=== PATIENT | female | born 1965 | race Caucasian/White ===

== ENCOUNTER 2021-07-03 11:37 | Emergency (ER) | payer BC, SELFPAY ==
[2021-07-03] VITALS (26 sets, daily range): BP systolic 114–128; BP diastolic 69–83; PULSE 65–84; RESP 12–27; O2SAT 95–100
--- NOTE | 2021-07-03 | ECG_ITS ---
Measurements Intervals [place] Rate: 76 P: 77 [place]: 206 QRS: 89 QRSD: 84 T: 78 QT: 398 QTc: 449 Interpretive Statements SINUS RHYTHM NORMAL ECG NO PREVIOUS ECG AVAILABLE FOR COMPARISON Electronically Signed On 07-03-2021 14:38:37 CDT by Willie Schwarz M.D.
--- NOTE | ~2021-07-03 | XR_ITS ---
EXAMINATION: XR chest 2V DATE: 07/03/2021 12:09 INDICATION: Midsternal chest pain radiating posteriorly TECHNIQUE: PA and lateral views of the chest were obtained. COMPARISON: Chest radiograph dated 01/30/2020 FINDINGS: The lungs remain clear with no focal airspace opacities, pulmonary edema, pleural effusion or pneumot horax. The cardiomediastinal silhouette is normal. Bilateral breast implants. IMPRESSION: 1. No acute cardiopulmonary disease. Reviewed, dictated and finalized at location B.
[2021-07-03 11:56] LABS: Basophils Absolute Auto 0.1 K/mm3 (0.0-0.1); Basophils Percent Auto 0.7 % (0.2-1.2); Eosinophils Absolute Auto 0.1 K/mm3 (0-0.3); Hematocrit 39.4 % (37.0-47.0); Hemoglobin 13.2 g/dL (12.0-15.0); Immature Granulocyte Absolute 0.02 K/mm3 (0.00-0.031); Immature Granulocyte Percent A 0.2 % (0-0.5); Lymphocytes Absolute Auto 1.82 K/mm3 (0.9-3.2); Lymphocytes Percent Auto 22.1 % (18.3-44.2); Mean Corpuscular HGB Conc 33.5 g/dl (32-36); Mean Corpuscular Hemoglobin 30.3 pg (26-34); Mean Corpuscular Volume 90.6 fl (80-100); Mean Platelet Volume 8.8 fl (7.4-10.4); Monocytes Absolute Auto 0.7 K/mm3 (0.1-0.6); Neutrophils Absolute Auto 5.5 K/mm3 (1.3-6.7); Platelet Count Result 264 k/mm3 (150-375); Red Blood Count 4.35 M/mm3 (4.2-5.4); Red Cell Distribution Width 13.4 % (11.5-14.5); White Blood Count 8.2 K/mm3 (4.5-10.0)
[2021-07-03 12:05] LABS: Alanine Aminotransferase 22 U/L (4-35); Albumin Level 4.3 g/dL (3.5-5.1); Alkaline Phosphatase 72 U/L (38-126); Anion Gap 8 mmol/L (8-16); Aspartate Amino Transferase 38 U/L (14-36); Bilirubin,Total 0.7 mg/dL (0.2-1.3); Blood Urea Nitrogen 19 mg/dL (7-17); Calcium 9.2 mg/dL (8.4-10.2); Carbon Dioxide 25 mmol/L (22-30); Chloride 103 mmol/L (98-107); Estimated CRCL calculation 79 ml/min; Estimated Glomerular Filt Rate > 60; Glucose 107 mg/dL (65-110); Lipase 156 U/L (23-300); Potassium 3.8 mmol/L (3.4-5.0); Sodium 136 mmol/L (137-145)
[2021-07-03 12:06] LABS: Partial Thromboplastin Time 25.4 SECONDS (22.3-36.8); Prothrombin Time 12.9 Seconds (11.1-14.7)
[2021-07-03 12:11] LABS: D Dimer < 0.27 ug/mL (<0.48)
--- NOTE | 2021-07-03 12:13 | ED.CHESTPAIN ---
HPI - Chest Pain General Chief Complaint: Chest Pain Stated Complaint: chest pain Time Seen by Provider: 07/03/21 11:51 Source: RN notes reviewed History of Present Illness HPI narrative: Patient presents emergency department from home via EMS for chest pain. Patient states pain began approximately 10 AM this morning patient states she was standing working when she got pain in the midsternal chest the pain was described as sharp and stabbing and went through to her back states that the pain lasted for few minutes and resolved and then came back again states the pain is now resolved she does note some mild shortness of breath with pain she denies any fevers or chills abdominal pain nausea vomiting or any other symptoms. Denies any previous cardiac history Related Data Home Medications Medication Instructions Recorded Confirmed levothyroxine 75 mcg tablet 75 mcg PO DAILY 06/03/21 06/03/21 Allergies Allergy/AdvReac Type Severity Reaction Status Date / Time adhesive tape Allergy Mild SEVERE Verified 06/03/21 15:45 ITCHING/RASH WITH SURGICAL TAPE Sulfa (Sulfonamide Allergy Mild Rash Verified 06/03/21 15:45 Antibiotics) sulfamethoxazole Allergy Mild Rash Verified 06/03/21 15:45 latex Allergy Unknown Rash Verified 06/03/21 15:45 sulfamethizole Allergy Unknown Rash Verified 06/03/21 15:45 trimethoprim Allergy Unknown Rash Verified 06/03/21 15:45 Review of Systems Review of Systems: Gen.: Denies fevers or chills ENT: Denies congestion Respiratory: Denies shortness of breath or cough CV: See HPI GI: Denies abdominal pain nausea, emesis or diarrhea Musculoskeletal: Denies back pain or muscle pain Neuro: Denies numbness, tingling, weakness or focal weakness Skin: Denies rash Except as documented, all other systems reviewed and negative [facility] Past Medical History Medical History Hypothyroid Surgical History Surgical History H/O: hysterectomy History of breast surgery breast implants Family History Family History Sibling Family history of malignant neoplasm of breast in first degree relative, Onset Age: 50 Mother Family history of malignant neoplasm of breast in first degree relative Other Family history of lung cancer Family history of malignant neoplasm of ovary Family history of renal cell carcinoma Social History Social History (Updated 07/03/21 @ 12:13 by Pasha Shin DO) Smoking status: Former smoker Alcohol intake: current Alcohol use details: social Substance use: never Substance use type: does not use Gender identity (if verbalized by the patient): Female Sexual Orientation (if Verbalized by the Patient): Straight or Heterosexual Exam Narrative: APPEARANCE: No acute distress, nontoxic, resting in bed EYES: EOMI HEENT: Normocephalic, atraumatic, OMM RESPIRATORY: No respiratory distress Clear to auscultation bilaterally with no rhonchi wheezing or rales. CARDIOVASCULAR: Regular rate and rhythm without murmurs rubs or gallops. ABDOMINAL: Soft, nontender, nondistended, no rebound or guarding MUSCULOSKELETAl: Moves all extremities. No clubbing, cyanosis or edema. NEURO: Awake and alert. Following commands, speech normal, no focal deficits SKIN:: Warm, dry. No rashes lesions or abrasions PSYCHIATRIC: Normal affect/mood, Course Course Emergency Course: Patient with no chest pain on the emergency department. Called and discussed with MARISSA Tellez for Dr. Schwarz. At this time I feel patient may be discharged we will set the patient up an office visit next week Discussed with patient results of workup and diagnosis. Discussed need for follow-up with primary care, proper use of medication, and reasons to return to the emergency department. Patient understands and agrees to current treatment plan V
[2021-07-03 12:17] LABS: Troponin I < 0.012 ng/mL (0.000-0.034)
[2021-07-03 15:08] LABS: Troponin I < 0.012 ng/mL (0.000-0.034)
== END 2021-07-03 15:52 | disposition home or self-care (01) ==
PROVIDERS: Emergency Provider Emergency Medicine
DX: E03.9 Hypothyroidism, unspecified (principal); Z87.891 Personal history of nicotine dependence
CPT/HCPCS: 36415; 71046; 80053; 83690; 84484; 85025; 85380; 85610; 85730; 93005; 99284

== ENCOUNTER 2023-06-17 15:03 | Inpatient (IN) | payer BC, SELFPAY ==
[2023-06-17] VITALS (7 sets, daily range): BP systolic 99–120; BP diastolic 46–67; PULSE 79–96; RESP 16–20; TEMP 36.9–39.1; O2SAT 96–99; BMI 21.6
--- NOTE | ~2023-06-17 | CT_ITS ---
EXAMINATION: CT abdomen pelvis w con INDICATION: Abdominal pain she TECHNIQUE: Computed tomographic images of the abdomen and pelvis were obtained after the administrati on of 100 cc of Omnipaque 350 intravenous contrast. The dose-length product (DLP) was 269.07 mGy-cm. Automated exposure control and iterative reconstruction technique were employed. COMPARISON: None available FINDINGS: Minimal dependent atelectasis is present in the lung bases. The heart size is normal. Bilat eral breast implants are noted. The liver, spleen, pancreas, gallbladder, and adrenal glands are norm al. The left kidney is unremarkable. There is a 3.2 cm area of abnormal perfusion of the posterolater al right mid kidney. There is mild right perinephric fat stranding. A small volume of pelvic ascites is noted. There is mild wall thickening of the urinary bladder with surrounding inflammatory change. There is mild lumbar spondylosis. IMPRESSION: 1. Abnormal perfusion of the posterolateral right mid kidney which could reflect focal pyelonephritis versus developing phlegmon/abscess. 2. Wall thickening of the urinary bladder, consistent with cystitis. Reviewed, dictated and finalized at location F. IMPRESSION: 1. Abnormal perfusion of the posterolateral right mid kidney which could reflec t focal pyelonephritis versus developing phlegmon/abscess. 2. Wall thickening of the urinary bladder, consistent with cystitis.
--- NOTE | ~2023-06-17 | CT_ITS ---
EXAMINATION: CT abdomen pelvis w con DATE: 06/19/2023 14:20 INDICATION: concern for renal abscess TECHNIQUE: Computed tomography (CT) of the abdomen and pelvis was performed 06/17/2023 intravenous con trast. Automated exposure control and iterative reconstruction technique were employed. The dose-cyndy th product was 250.61 mGy-cm. COMPARISON: None. FINDINGS: Lower thorax: Bilateral breast implants Liver: Normal. Biliary/Gallbladder: Gallbladder is normal. No bile duct dilation. Pancreas: No mass or duct dilation. Spleen: Normal. Adrenals:No mass. Kidneys: Persistent patchy areas of hypoenhancement in the right inferior pole. No gas or rim-enhanci ng fluid collection. Normal left kidney. Thin right perinephric stranding/nonenhancing fluid. GI tract: Moderate distal esophageal and gastric wall edema. No small or large bowel dilation. Normal appendix. Mesentery/Peritoneum: No ascites, mass, or free air. Retroperitoneum: No mass. Pelvis: Absent uterus. Moderate volume deep pelvic fluid. Soft Tissues: Soft tissues and body wall unremarkable. Bones: No acute osseous finding. IMPRESSION: Moderate esophagitis/gastritis. Redemonstration of right renal findings that likely represent focal pyelonephritis. Developing phlegm on/abscess cannot be excluded. Considerable increase in the deep pelvic fluid. Reviewed, dictated and finalized at location K. IMPRESSION: Moderate esophagitis/gastritis. Redemonstration of right renal findings that likely represent focal pyelonephri tis. Developing phlegmon/abscess cannot be excluded. Considerable increase in the deep pelvic fluid.
--- NOTE | 2023-06-17 16:32 | ED.FEMALEGU ---
HPI - Female Genitourinary General Chief complaint: Urogenital-Female <Santa Baltazar PA-C - Last Filed: 06/17/23 20:29> Stated complaint: uti, kidney infection? <Santa Baltazar PA-C - Last Filed: 06/17/23 20:29> Time Seen by Provider: 06/17/23 16:32 <RUDDY Pichardo Last Filed: 06/17/23 20:29> Source: patient <RUDDY Pichardo Last Filed: 06/17/23 20:29> Mode of arrival: ambulatory <RUDDY Pichardo Last Filed: 06/17/23 20:29> Limitations: no limitations <RUDDY Pichardo Last Filed: 06/17/23 20:29> History of Present Illness HPI Narrative: Patient is a 57-year-old female who presents the ED with report of urinary symptoms. Patient reports she has had increased urination, frequency, urgency, pressure with urination for the last 3 weeks. She was started on a 10 day course of ciprofloxacin on 06/04 by her primary care doctor without much improvement. she has since also developed pain across her lower back pain in her lower abdomen, nausea, as well as fevers for the last couple of days. She has been taking ibuprofen at home. Has not had anything for pain or fever today. Noted to be febrile upon arrival. Denies vomiting, hematuria, cough or cold symptoms. <RUDDY Pichardo Last Filed: 06/17/23 20:29> Related Data Home medications: Home Medications Medication Instructions Recorded Confirmed levothyroxine 75 mcg tablet 75 mcg PO DAILY 06/03/21 06/17/23 (Synthroid) valacyclovir 500 mg tablet 500 mg PO Q12H PRN fever blisters 06/17/23 06/17/23 (Valtrex) zolpidem 10 mg tablet 10 mg PO HS PRN Insomnia 06/17/23 06/17/23 <RUDDY Pichardo Last Filed: 06/17/23 20:29> Allergies/Adverse reactions: Allergies Allergy/AdvReac Type Severity Reaction Status Date / Time adhesive tape Allergy Mild SEVERE Verified 06/17/23 19:30 ITCHING/RASH WITH SURGICAL TAPE Sulfa (Sulfonamide Allergy Mild Rash Verified 06/17/23 19:30 Antibiotics) sulfamethoxazole Allergy Mild Rash Verified 06/17/23 19:30 latex Allergy Unknown Rash Verified 06/17/23 19:30 sulfamethizole Allergy Unknown Rash Verified 06/17/23 19:30 trimethoprim Allergy Unknown Rash Verified 06/17/23 19:30 <Santa Baltazar PA-C - Last Filed: 06/17/23 20:29> Review of Systems Review of Systems: CONSTITUTIONAL: See HPI ENT: Denies rhinorrhea, congestion, sore throat. CARDIOVASCULAR: Denies chest pain. RESPIRATORY: Denies cough or dyspnea. GASTROINTESTINAL: See HPI GENITOURINARY: See HPI MUSCULOSKELETAL: See HPI NEUROLOGIC: Denies headache, dizziness, numbness, or weakness. <Santa Baltazar PA-C - Last Filed: 06/17/23 20:29> All systems reviewed & are unremarkable except as noted in HPI and below <Santa Baltazar PA-C - Last Filed: 06/17/23 20:29> [facility] Past Medical History Medical History: Medical History (Updated 06/17/23 @ 20:39 by Amy Billingsley PA-C) Hypothyroidism <Santa Baltazar PA-C - Last Filed: 06/17/23 20:29> Surgical History Surgical History: Surgical History (Updated 06/17/23 @ 20:37 by Amy Billingsley PA-C) History of augmentation of both breasts History of hysterectomy <Santa Baltazar PA-C - Last Filed: 06/17/23 20:29> Family History Family History: Family History Sibling Family history of malignant neoplasm of breast in first degree relative, Onset Age: 50 Mother Family history of malignant neoplasm of breast in first degree relative Other Family history of lung cancer Family history of malignant neoplasm of ovary Family history of renal cell carcinoma <Santa Baltazar PA-C - Last Filed: 06/17/23 20:29> Social History Social History: Social History (Updated 06/17/23 @ 20:37 by Amy Billingsley PASusan) Social History: Surrogate medical de
[2023-06-17] MEDS: ONDANSETRON INJ 4 MG/2 ML VIAL IV PUSH (16:53)
[2023-06-17] MEDS: SODIUM CHLORIDE 0.9% IV 1,000 ML 999 ML IV CONT ×2 (16:53→19:32)
[2023-06-17] MEDS: ACETAMINOPHEN 500 MG TABLET 1000 MG PO (16:53)
[2023-06-17 17:05] LABS: Basophils Percent Auto 0.3 % (0.2-1.2); Hematocrit 39.3 % (37.0-47.0); Immature Granulocyte Absolute 0.07 K/mm3 (0.00-0.031); Immature Granulocyte Percent A 0.5 % (0-0.5); Lymphocytes Absolute Auto 0.91 K/mm3 (0.9-3.2); Lymphocytes Percent Auto 6.2 % (18.3-44.2); Mean Corpuscular HGB Conc 33.1 g/dl (32-36); Mean Corpuscular Hemoglobin 29.2 pg (26-34); Mean Corpuscular Volume 88.3 fl (80-100); Mean Platelet Volume 8.9 fl (7.4-10.4); Monocytes Absolute Auto 1.3 K/mm3 (0.1-0.6); Monocytes Percent Auto 9.2 % (2.6-8.5); Neutrophils Absolute Auto 12.3 K/mm3 (1.3-6.7); Neutrophils Percent Auto 83.8 % (45.5-73.1); Platelet Count Result 233 k/mm3 (150-375); Red Blood Count 4.45 M/mm3 (4.2-5.4); Red Cell Distribution Width 14.2 % (11.5-14.5); White Blood Count 14.6 K/mm3 (4.5-10.0)
[2023-06-17 17:07] LABS: Appearance Urine Cloudy (Clear); Bacteria Urine 4+ /hpf; Bilirubin Urine Negative (Negative); Blood Urine 1+ (Negative); Color Urine Yellow (Yellow); Glucose Urine UA Negative (Negative); Ketones Urine 1+ mg/dL (Negative); Leukocyte Esterase Ur 3+ LEU/UL (Negative); Nitrate Urine Positive (Negative); Non Pathogenic Casts 0-2; Protein Urine 1+ mg/dL (Negative); Specific Grav Ur 1.013 (1.001-1.035); Squamous Epithelial Cell Urine None Seen /hpf (Few); Urobilinogen Urine 0.2 mg/dL (<2.0); WBC Urine >100 /hpf (0-3)
[2023-06-17 17:12] LABS: Alanine Aminotransferase 29 U/L (6-35); Albumin Level 4.3 g/dL (3.5-5.1); Alkaline Phosphatase 60 U/L (38-126); Anion Gap 5 mmol/L (8-16); Aspartate Amino Transferase 36 U/L (14-36); Bilirubin,Total 0.8 mg/dL (0.2-1.3); Blood Urea Nitrogen 13 mg/dL (7-17); Calcium 9.4 mg/dL (8.4-10.2); Carbon Dioxide 27 mmol/L (22-30); Chloride 98 mmol/L (98-107); Estimated CRCL calculation 77 ml/min; Estimated Glomerular Filt Rate > 60; Glucose 127 mg/dL (65-110); Potassium 3.8 mmol/L (3.4-5.0); Sodium 130 mmol/L (137-145)
[2023-06-17 17:13] LABS: Add Urine Microscopic? YES
[2023-06-17] MEDS: CEFEPIME 2 GM/NS 50 ML 2 GM/50 ML BAG IVPB (19:30)
[2023-06-17] MEDS: VANCOMYCIN 1,000 MG/NS 250 ML 1,000 MG/250 ML BAG 250 MG IVPB (20:00)
--- NOTE | 2023-06-17 20:32 | PM.IMHP ---
H&P: HPI History of Present Illness Date/Time: 06/17/23 20:00 Chief Complaint: Fever, UTI. Narrative: This is a very pleasant 57-year-old female with hypothyroidism who presented to the emergency department via private vehicle for evaluation of fever in the setting of a recent urinary tract infection. The patient provides the following history. Nearly 2 weeks ago she developed UTI symptoms to include mild dysuria, urgency, frequency, and pressure with urination. She spoke with her primary care provider who prescribed a 10 day course of ciprofloxacin which she completed. Although she was feeling a bit better her symptoms never completely resolved. The last 3 or 4 days she has developed suprapubic discomfort and a severe, aching pain in the lower back in addition to nausea, decreased appetite, and fever. She has been taking ibuprofen for her symptoms. She denies cold and flu symptoms, vomiting, and diarrhea. She has no known history of kidney stones or multidrug resistant organisms. In the ED: Her temperature was as high as 102.4?. Blood pressures have been on the lower end of normal but have improved with IV fluids. Labs were significant for WBC count of 14.6, sodium 130, lactic acid 1.0. Urine was nitrate and leukocyte esterase positive and showed 4+ bacteria and greater than [address] scan of the abdomen and pelvis showed abnormal perfusion of the posterolateral right mid kidney which could reflect focal pyelonephritis versus developing phlegmon/abscess and wall thickening of the urinary bladder consistent with cystitis. She has been started on broad-spectrum antibiotics and is being admitted in this setting for further treatment. Review of Systems Review of Systems: Twelve systems were reviewed and are negative except for as per HPI. [facility] Past Medical History Medical History (Updated 06/17/23 @ 20:39 by Amy Billingsley PA-C) Hypothyroidism Surgical History Surgical History (Updated 06/17/23 @ 20:37 by Amy Billingsley PA-C) History of augmentation of both breasts History of hysterectomy Family History Family History Sibling Family history of malignant neoplasm of breast in first degree relative, Onset Age: 50 Mother Family history of malignant neoplasm of breast in first degree relative Other Family history of lung cancer Family history of malignant neoplasm of ovary Family history of renal cell carcinoma Social History Social History (Updated 06/17/23 @ 20:37 by TISH Valles Social History: Surrogate medical decision maker: ruddy Arrieta. Code status: Full code. Smoking status: Former smoker Alcohol intake: current Alcohol use details: Social alcohol use in moderation. Substance use: never Substance use type: does not use Lack of Transportation: No Lack of Food: Never True Current Housing: I Have Housing Concerned About Future Housing: No Difficulty Paying Gas/Electric Bills: No Difficulty Paying for Meds: No Currently Unemployed: No Education: High School Diploma/GED Difficulty w/ Childcare or Family Care: No Living arrangements: alone Occupation/Education: occupation Meds Home Medications and Allergies Home Medications Medication Instructions Recorded Confirmed Type valacyclovir 500 mg tablet 500 mg PO Q12H #14 tabs 04/14/21 06/03/21 Rx (Valtrex) levothyroxine 75 mcg tablet 75 mcg PO DAILY 06/03/21 06/03/21 History (Synthroid) conjugated estrogens 0.45 mg 0.45 mg PO DAILY #90 tabs 05/30/23 Rx tablet (Premarin) Allergies Allergy/AdvReac Type Severity Reaction Status Date / Time adhesive tape Allergy Mild SEVERE Verified 06/17/23 19:30 ITCHING/RASH WITH SURGICAL TAPE Sulfa (Sulfonamide Allergy Mild Rash Verified 06/17/23 19:30 Antibiotics) sulfamethoxazole Allergy Mild Rash Verified 06/17/23 19:30 latex Allergy Unknown Rash Verified 06/16
[2023-06-17] MEDS: SODIUM CHLORIDE 0.9% IV 1,000 ML 80 ML IV CONT (21:35)
[2023-06-17] MEDS: ACETAMINOPHEN 325 MG TABLET 650 MG PO (21:54)
[2023-06-18] VITALS (7 sets, daily range): BP systolic 101–114; BP diastolic 54–58; PULSE 80–91; RESP 16–20; TEMP 37.1–38.7; O2SAT 94–97
[2023-06-18] MEDS: LEVOTHYROXINE SODIUM 75 MCG TABLET PO (04:59)
[2023-06-18] MEDS: ACETAMINOPHEN 325 MG TABLET 650 MG PO ×2 (05:24→20:30)
[2023-06-18 06:51] LABS: Basophils Percent Auto 0.3 % (0.2-1.2); Hematocrit 35.3 % (37.0-47.0); Hemoglobin 11.5 g/dL (12.0-15.0); Immature Granulocyte Absolute 0.08 K/mm3 (0.00-0.031); Immature Granulocyte Percent A 0.6 % (0-0.5); Lymphocytes Absolute Auto 0.69 K/mm3 (0.9-3.2); Lymphocytes Percent Auto 5.2 % (18.3-44.2); Mean Corpuscular HGB Conc 32.6 g/dl (32-36); Mean Corpuscular Hemoglobin 29.8 pg (26-34); Mean Corpuscular Volume 91.5 fl (80-100); Mean Platelet Volume 9.2 fl (7.4-10.4); Monocytes Absolute Auto 1.4 K/mm3 (0.1-0.6); Monocytes Percent Auto 10.5 % (2.6-8.5); Neutrophils Absolute Auto 11.1 K/mm3 (1.3-6.7); Neutrophils Percent Auto 83.4 % (45.5-73.1); Platelet Count Result 172 k/mm3 (150-375); Red Blood Count 3.86 M/mm3 (4.2-5.4); Red Cell Distribution Width 14.5 % (11.5-14.5); White Blood Count 13.3 K/mm3 (4.5-10.0)
[2023-06-18 07:08] LABS: Anion Gap 4 mmol/L (8-16); Blood Urea Nitrogen 10 mg/dL (7-17); Calcium 8.5 mg/dL (8.4-10.2); Carbon Dioxide 23 mmol/L (22-30); Chloride 106 mmol/L (98-107); Estimated CRCL calculation 89 ml/min; Estimated Glomerular Filt Rate > 60; Glucose 125 mg/dL (65-110); Magnesium 1.8 mg/dL (1.6-2.3); Potassium 3.4 mmol/L (3.4-5.0); Sodium 133 mmol/L (137-145)
[2023-06-18] MEDS: CEFEPIME 2 GM/NS 50 ML 2 GM/50 ML BAG IVPB ×2 (08:03→21:20)
[2023-06-18] MEDS: ENOXAPARIN 40 MG/0.4 ML SYRINGE SUB-Q (08:05)
--- NOTE | 2023-06-18 09:06 | WPDURCON ---
Assessment and Plan Assessment and plan (1) Pyelonephritis of right kidney: Code(s): N12 - Tubulo-interstitial nephritis, not specified as acute or chronic Status: Acute Assessment and Plan: Continue with broad-spectrum antibiotics pending culture and sensitivity. As long as white count continues to improve and she remains afebrile will not need reimaging this admission. Will plan on outpatient CT in 4-6 weeks time. If develops recurring fevers or rising white count then will need reimaging sooner to make sure no abscesses developed requiring percutaneous drainage Urology Consult Note HPI Date Seen: 06/18/23 Time Seen: 09:06 Requesting Physician: Archie Quiroz MD Primary Care Provider: Antoinette Cloud, PAAntonellaC Consult Narrative Reason for consult: Pyelonephritis Narrative: Lexii Barone is a 57 year old female who was treated for urinary tract infection as an outpatient with 10 day course of Cipro. She did not do any better and then ended up in the emergency room with fever and right flank pain. Evaluation with CT scan reveals abnormality in the right mid pole kidney consistent with pyelonephritis. There is no evidence of stones or obstruction. The time of my evaluation she is resting comfortably without any significant complaints. Review of Systems Review of Systems: All systems reviewed & are unremarkable except as noted in HPI and below PMFSH Past Medical History Medical History Hypothyroidism Surgical History Surgical History History of augmentation of both breasts History of hysterectomy Family History Family History Sibling Family history of malignant neoplasm of breast in first degree relative, Onset Age: 50 Mother Family history of malignant neoplasm of breast in first degree relative Other Family history of lung cancer Family history of malignant neoplasm of ovary Family history of renal cell carcinoma Social History Social History Social History: Surrogate medical decision maker: ruddy Arrieta. Code status: Full code. Smoking status: Former smoker Alcohol intake: current Alcohol use details: Social alcohol use in moderation. Substance use: never Substance use type: does not use Do You Feel Safe in your Home?: Yes Lack of Transportation: No Lack of Food: Never True Current Housing: I Have Housing Concerned About Future Housing: No Difficulty Paying Gas/Electric Bills: No Difficulty Paying for Meds: No Currently Unemployed: No Education: High School Diploma/GED Difficulty w/ Childcare or Family Care: No Living arrangements: alone Occupation/Education: occupation Spiritual care concerns: No Meds Home Medications and Allergies Home Medications Medication Instructions Recorded Confirmed Type levothyroxine 75 mcg tablet 75 mcg PO DAILY 06/03/21 06/17/23 History (Synthroid) valacyclovir 500 mg tablet 500 mg PO Q12H PRN fever blisters 06/17/23 06/17/23 History (Valtrex) zolpidem 10 mg tablet 10 mg PO HS PRN Insomnia 06/17/23 06/17/23 History Allergies Allergy/AdvReac Type Severity Reaction Status Date / Time adhesive tape Allergy Mild SEVERE Verified 06/17/23 19:30 ITCHING/RASH WITH SURGICAL TAPE Sulfa (Sulfonamide Allergy Mild Rash Verified 06/17/23 19:30 Antibiotics) sulfamethoxazole Allergy Mild Rash Verified 06/17/23 19:30 latex Allergy Unknown Rash Verified 06/17/23 19:30 sulfamethizole Allergy Unknown Rash Verified 06/17/23 19:30 trimethoprim Allergy Unknown Rash Verified 06/17/23 19:30 Vital Signs Vital Signs - 24 hr 06/17/23 15:04 06/17/23 16:44 06/17/23 17:33 Temperature 38.0 C H 39.1 C H 38.7 C H Pulse Rate 96 Respiratory Ra
--- NOTE | 2023-06-18 10:11 | PM.IMPN ---
Progress Note: A&P Assessment and Plan (1) Pyelonephritis of right kidney: Code(s): N12 - Tubulo-interstitial nephritis, not specified as acute or chronic Status: Acute Assessment and Plan: UTI symptoms began 2 weeks ago including dysuria, frequency, and pressure with urination. PCP prescribed ciprofloxacin she completed. Symptoms never fully resolved and patient recently developed worsening suprapubic discomfort and lower back pain, decreased appetite, and fever. Urinalysis with cloudy appearance and 1+ protein, 1+ ketone, 1+ blood, positive nitrates, 3+ leukocytes, 3-5 RBC, > 100 WBC, and 4+ bacteria. CT abdomen/pelvis revealed right pyelonephritis with cystitis. Dr. Xiong (urology) examined patient today and plan to continue broad-spectrum antibiotics pending culture and sensitivity. If WBC rises or patient develops persistent fevers will need reimaging to rule out a developing abscess. Otherwise they plan plan is for outpatient CT in 4-6 weeks. Blood cultures pending Urine culture gram negative bacilli Cefepime Vancomycin (2) Hyponatremia: Code(s): E87.1 - Hypo-osmolality and hyponatremia Status: Acute Assessment and Plan: Patient mildly hyponatremic on admission. Started on 80ml/hr NS IV. Sodium is responding appropriately to fluid resuscitation. Continue to monitor Na 80ml/hr NS IV (3) Hypothyroidism: Code(s): E03.9 - Hypothyroidism, unspecified Status: Acute Assessment and Plan: Patients home dose of levothyroxine 75mcg daily. TSH 0.170. Will decrease her dose to 50mcg daily. Patient received her morning dose already, so new dose will start 06/19/23. Free T4 pending Time Spent With Patient Time with patient: Greater than 35 minutes Subjective Date/time seen: 06/18/23 10:11 Interval history: 57-year-old female with hypothyroidism who presented to the emergency department for fever with recent urinary tract infection. 2 weeks ago she developed UTI symptoms including dysuria, frequency, and pressure with urination. She then prescribed a course of ciprofloxacin by her PCP which she completed. Symptoms never fully resolved and patient developed worsening suprapubic pain and lower back pain, decreased appetite, and fever. She denies chest pain, shortness of breath, nausea, vomiting, and changes in bowel/bladder. Review of Systems Review of Systems: All systems reviewed & are unremarkable except as noted in HPI and below Exam Narrative: AF HR 91 RR 16 SpO2 94 BP 101/58 General: well nourished, well-developed female in no acute respiratory distress who is nontoxic appearing, lying semi recumbent in bed. HEENT: Normocephalic. Atraumatic. Pupils equal round reactive to light. Extraocular movement intact. Sclera clear and anicteric. No facial asymmetry. Chest: Lungs are clear to auscultation bilaterally. No wheezes or crackles. CV: Heart was regular rate and rhythm. S1-S2. No murmurs, gallops, or rubs. Abd: CVA tenderness R>L. Abdomen was soft. Suprapubic tenderness. Nondistended. Positive bowel sounds. No organomegaly or masses. Ext: No clubbing, cyanosis, or edema. 2+ DP pulses bilaterally. Neuro: Patient is alert and oriented x4. Speech is clear. Psych: Normal mood and affect. Patient is pleasant and cooperative. Skin: Warm and dry. No rashes noted. Objective Data Vital Signs Vital Signs: Vital Signs - 24 hr 06/17/23 15:04 06/17/23 16:44 06/17/23 17:33 Temperature 100.4 F H 102.4 F H 101.6 F H Pulse Rate 96 Respiratory Rate 20 Blood Pressure 120/67 Pulse Oximetry 99 Oxygen Delivery Room Air 06/17/23 17:33 06/17/23 19:20 06/17/23 20:31 Temperature 98.4 F Pulse Rate 88 87 79 Respiratory Rate 20 16 18 Blood Pressure 107/46 L 99/62 L 110/58 L Pulse Oximetry 96 97 98 Oxygen Delivery 06/17/23 21:58 06/17/23 23:00 06/18/23 05:43 Temperature 98.5 F 100.5 F H Pulse Rate 86 89 Respiratory Rate 20 20 Blood Pressure
[2023-06-18 11:25] LABS: Free T4 Free Thyroxine Reflex 1.17 ng/dL (0.78-2.19)
[2023-06-18] MEDS: SODIUM CHLORIDE 0.9% IV 1,000 ML 80 ML IV CONT (13:06)
[2023-06-18] MEDS: ONDANSETRON INJ 4 MG/2 ML VIAL IV PUSH (14:19)
[2023-06-18] MEDS: VANCOMYCIN 1,000 MG/NS 250 ML 1,000 MG/250 ML BAG 250 MG IVPB (14:25)
[2023-06-18 14:57] LABS: Total Triiodothyronine (T3) 0.64 NG/ML (0.97-1.69)
[2023-06-18] MEDS: ZOLPIDEM TARTRATE (*CRX) 5 MG TABLET 10 MG PO (21:21)
[2023-06-19 01:51] VITALS: TEMP 36.9
[2023-06-19] MEDS: LEVOTHYROXINE SODIUM 50 MCG TABLET PO (05:31)
[2023-06-19] MEDS: SODIUM CHLORIDE 0.9% IV 1,000 ML 80 ML IV CONT ×2 (05:36→21:30)
[2023-06-19 06:00] VITALS: BP 94/52; PULSE 54; RESP 18; TEMP 36.5; O2SAT 100
[2023-06-19 07:41] LABS: Estimated CRCL calculation 89 ml/min; Estimated Glomerular Filt Rate > 60
--- NOTE | 2023-06-19 07:53 | PM.IMPN ---
Progress Note: A&P Assessment and Plan (1) Pyelonephritis of right kidney: Code(s): N12 - Tubulo-interstitial nephritis, not specified as acute or chronic Status: Acute Assessment and Plan: UTI symptoms began 2 weeks ago including dysuria, frequency, and pressure with urination. PCP prescribed ciprofloxacin she completed. Symptoms never fully resolved and patient recently developed worsening suprapubic discomfort and lower back pain, decreased appetite, and fever. Urinalysis with cloudy appearance and 1+ protein, 1+ ketone, 1+ blood, positive nitrates, 3+ leukocytes, 3-5 RBC, > 100 WBC, and 4+ bacteria. CT abdomen/pelvis revealed right pyelonephritis with cystitis. Dr. Xiong (urology) examined patient today and plan to continue broad-spectrum antibiotics pending culture and sensitivity. If WBC rises or patient develops persistent fevers will need reimaging to rule out a developing abscess. Otherwise they plan plan is for outpatient CT in 4-6 weeks. Patient developed a 101.6 F fever overnight. WBC remain elevated 13.3, but downtrending with current antibiotics. A new CT abdomen/pelvis cannot rule out abscess formation. Vancomycin discontinued due to infection likely being ecoli. Patient remains on cefepime. Blood cultures gram negative bacilli likely ecoli Urine culture ecoli Cefepime (2) Hyponatremia: Code(s): E87.1 - Hypo-osmolality and hyponatremia Status: Acute Assessment and Plan: Patient mildly hyponatremic on admission. Started on 80ml/hr NS IV. Sodium is responding appropriately to fluid resuscitation. Continue to monitor Na 80ml/hr NS IV (3) Hypothyroidism: Code(s): E03.9 - Hypothyroidism, unspecified Status: Acute Assessment and Plan: Patients home dose of levothyroxine 75mcg daily. TSH 0.170. Will decrease her dose to 50mcg daily. Patient received her morning dose already, so new dose will start 06/19/23. Free T4 1.17. Will have patient follow up with primary care provider outpatient to follow up on medication change. Time Spent With Patient Time with patient: 25 - 35 minutes Subjective Date/time seen: 06/19/23 07:53 Interval history: 57-year-old female with hypothyroidism who presented to the emergency department for fever with recent urinary tract infection. 2 weeks ago she developed UTI symptoms including dysuria, frequency, and pressure with urination. She then prescribed a course of ciprofloxacin by her PCP which she completed. Symptoms never fully resolved and patient developed worsening suprapubic pain and lower back pain, decreased appetite, and fever. Patient is pleasant lying in bed. She endorses several episodes of diarrhea, stating each time she eats she must immediately use the restroom. She is having mild abdominal cramping more so on the right. She is now trying a bland diet. She denies hematochezia, nausea/vomiting. Discussed with patient that due to her multiple fevers overnight going to 101.6F. A new CT abdomen/pelvis was obtained and a developing abscess cannot be ruled out. She reports that she has a fever blister and takes valacyclovir twice a day when these occurs. Will restart medication at this time. Review of Systems Review of Systems: All systems reviewed & are unremarkable except as noted in HPI and below Exam Narrative: AF HR 77 RR 18 SpO2 100 BP 94/52 General: well nourished, well-developed female in no acute respiratory distress who is nontoxic appearing, lying semi recumbent in bed. HEENT: Normocephalic. Atraumatic. Pupils equal round reactive to light. Extraocular movement intact. Sclera clear and anicteric. No facial asymmetry. Chest: Lungs are clear to auscultation bilaterally. No wheezes or crackles. CV: Heart was regular rate and rhythm. S1-S2. No murmurs, gallops, or rubs. Abd: CVA tenderness R>L. Abdomen was soft. Suprapubic tenderness. Nondistended. Positive bowel sounds. No organomegaly or masses. Ext: No clubbi
[2023-06-19] MEDS: valACYclovir HCL 500 MG TABLET PO ×2 (08:46→20:27)
[2023-06-19] MEDS: CEFEPIME 2 GM/NS 50 ML 2 GM/50 ML BAG IVPB (08:49)
[2023-06-19 08:55] VITALS: BP 97/45; PULSE 77; O2SAT 97
[2023-06-19] MEDS: VANCOMYCIN 1,000 MG/NS 250 ML 1,000 MG/250 ML BAG 250 MG IVPB (10:13)
[2023-06-19 14:00] VITALS: BP 113/65; PULSE 98; RESP 12; TEMP 37.2; O2SAT 97
[2023-06-19 20:00] VITALS: O2SAT 97
[2023-06-19] MEDS: MEROPENEM 1 GM/NS 100 ML 1 GM/100 ML BAG IVPB (20:18)
[2023-06-19] MEDS: ZOLPIDEM TARTRATE (*CRX) 5 MG TABLET 10 MG PO (20:27)
[2023-06-19 20:38] VITALS: BP 125/65; PULSE 61; RESP 17; TEMP 37.1; O2SAT 96
[2023-06-20] MEDS: MEROPENEM 1 GM/NS 100 ML 1 GM/100 ML BAG IVPB ×2 (03:00→11:27)
[2023-06-20 05:14] VITALS: BP 124/81; PULSE 66; RESP 18; TEMP 36.6; O2SAT 98
[2023-06-20] MEDS: LEVOTHYROXINE SODIUM 50 MCG TABLET PO (05:23)
[2023-06-20 07:02] LABS: Estimated CRCL calculation 89 ml/min; Estimated Glomerular Filt Rate > 60
--- NOTE | 2023-06-20 07:22 | PM.IMPN ---
Progress Note: A&P Assessment and Plan (1) Pyelonephritis of right kidney: Code(s): N12 - Tubulo-interstitial nephritis, not specified as acute or chronic Status: Acute Assessment and Plan: UTI symptoms began 2 weeks ago including dysuria, frequency, and pressure with urination. PCP prescribed ciprofloxacin she completed. Symptoms never fully resolved and patient recently developed worsening suprapubic discomfort and lower back pain, decreased appetite, and fever. Urinalysis with cloudy appearance and 1+ protein, 1+ ketone, 1+ blood, positive nitrates, 3+ leukocytes, 3-5 RBC, > 100 WBC, and 4+ bacteria. CT abdomen/pelvis revealed right pyelonephritis with cystitis. Dr. Xiong (urology) examined patient today and plan to continue broad-spectrum antibiotics pending culture and sensitivity. If WBC rises or patient develops persistent fevers will need reimaging to rule out a developing abscess. Otherwise they plan plan is for outpatient CT in 4-6 weeks. Patient developed a 101.6 F fever overnight. WBC remain elevated 13.3, but downtrending with current antibiotics. A new CT abdomen/pelvis cannot rule out abscess formation. Vancomycin discontinued due to infection likely being ecoli. Patient remains on cefepime. Blood cultures gram negative bacilli likely ecoli Urine culture ecoli with ESBL resistance New blood culture pending Meropenem 1g IVPB q8 (2) Hyponatremia: Code(s): E87.1 - Hypo-osmolality and hyponatremia Status: Acute Assessment and Plan: Patient mildly hyponatremic on admission. Started on 80ml/hr NS IV. Sodium is responding appropriately to fluid resuscitation. Continue to monitor Na 80ml/hr NS IV (3) Hypothyroidism: Code(s): E03.9 - Hypothyroidism, unspecified Status: Acute Assessment and Plan: Patients home dose of levothyroxine 75mcg daily. TSH 0.170. Will decrease her dose to 50mcg daily. Patient received her morning dose already, so new dose will start 06/19/23. Free T4 1.17. Will have patient follow up with primary care provider outpatient to follow up on medication change. Time Spent With Patient Time with patient: 25 - 35 minutes Subjective Date/time seen: 06/20/23 07:22 Interval history: 57-year-old female with hypothyroidism who presented to the emergency department for fever with recent urinary tract infection. 2 weeks ago she developed UTI symptoms including dysuria, frequency, and pressure with urination. She then prescribed a course of ciprofloxacin by her PCP which she completed. Symptoms never fully resolved and patient developed worsening suprapubic pain and lower back pain, decreased appetite, and fever. Patient is sitting up in bed comfortably. She notes that her appetite has been better and was able to eat oatmeal and toast this morning. She denies nausea/vomiting and diarrhea. Discussed with patient that due to her current urine culture with susceptibilities she will need to remain on IV antibiotics at this time. She states understanding. Patient's white count continues to go down and there was no fevers overnight. She denies dysuria, hematuria, burning sensation, any increased frequency/urgency with urination. Review of Systems Review of Systems: All systems reviewed & are unremarkable except as noted in HPI and below Exam Narrative: AF HR 66 RR 18 SpO2 98 BP 124/81 General: well nourished, well-developed female in no acute respiratory distress who is nontoxic appearing, lying semi recumbent in bed. HEENT: Normocephalic. Atraumatic. Pupils equal round reactive to light. Extraocular movement intact. Sclera clear and anicteric. No facial asymmetry. Chest: Lungs are clear to auscultation bilaterally. No wheezes or crackles. CV: Heart was regular rate and rhythm. S1-S2. No murmurs, gallops, or rubs. Abd: Abdomen was soft. Suprapubic tenderness. Nondistended. Positive bowel sounds. No organomegaly or masses. Ext: No clubbing, cyanosis,
[2023-06-20] MEDS: SODIUM CHLORIDE 0.9% IV 1,000 ML 80 ML IV CONT ×2 (08:04→21:35)
[2023-06-20 09:13] LABS: Hematocrit 32.1 % (37.0-47.0); Hemoglobin 10.3 g/dL (12.0-15.0); Mean Corpuscular HGB Conc 32.1 g/dl (32-36); Mean Corpuscular Volume 90.4 fl (80-100); Mean Platelet Volume 9.6 fl (7.4-10.4); Platelet Count Result 190 k/mm3 (150-375); Red Blood Count 3.55 M/mm3 (4.2-5.4); Red Cell Distribution Width 13.9 % (11.5-14.5); White Blood Count 7.5 K/mm3 (4.5-10.0)
[2023-06-20 09:25] LABS: Anion Gap 2 mmol/L (8-16); Blood Urea Nitrogen 9 mg/dL (7-17); Calcium 8.3 mg/dL (8.4-10.2); Carbon Dioxide 27 mmol/L (22-30); Chloride 105 mmol/L (98-107); Estimated CRCL calculation 89 ml/min; Estimated Glomerular Filt Rate > 60; Glucose 90 mg/dL (65-110); Potassium 3.1 mmol/L (3.4-5.0); Sodium 134 mmol/L (137-145)
[2023-06-20] MEDS: POTASSIUM CHLORIDE 20 MEQ ER TABLET 40 MEQ PO (09:39)
[2023-06-20] MEDS: valACYclovir HCL 500 MG TABLET PO ×2 (09:39→21:36)
[2023-06-20 14:00] VITALS: BP 119/69; PULSE 52; RESP 18; TEMP 36.5; O2SAT 98
[2023-06-20 20:00] VITALS: O2SAT 98
[2023-06-20 20:44] VITALS: BP 110/73; PULSE 62; RESP 18; TEMP 36.6; O2SAT 98
[2023-06-20] MEDS: diphenhydrAMINE HCl INJ 50 MG/ML VIAL IV PUSH (21:37)
--- NOTE | 2023-06-20 21:37 | PC.NURSE ---
Patient has raised, red, itchy rash all over abdomen and back. Noted since approx 3rd dose of meropenem. Notified Dr. Quiroz. New order received to stop meropenem and she would put in new antibiotic and to give benadryl 50mg IVP x1.
[2023-06-20] MEDS: ZOLPIDEM TARTRATE (*CRX) 5 MG TABLET 10 MG PO (22:53)
[2023-06-21 05:21] VITALS: BP 114/67; PULSE 70; RESP 18; TEMP 36.5; O2SAT 95
--- NOTE | 2023-06-21 05:51 | PC.NURSE ---
New order received from Dr. Quiroz for levaquin 750mg IV daily.
[2023-06-21] MEDS: LEVOTHYROXINE SODIUM 50 MCG TABLET PO (06:13)
[2023-06-21 07:06] LABS: Hematocrit 33.6 % (37.0-47.0); Mean Corpuscular HGB Conc 32.7 g/dl (32-36); Mean Corpuscular Hemoglobin 29.3 pg (26-34); Mean Corpuscular Volume 89.4 fl (80-100); Platelet Count Result 209 k/mm3 (150-375); Red Blood Count 3.76 M/mm3 (4.2-5.4); Red Cell Distribution Width 13.7 % (11.5-14.5); White Blood Count 5.1 K/mm3 (4.5-10.0)
[2023-06-21 07:17] LABS: Anion Gap 2 mmol/L (8-16); Blood Urea Nitrogen 7 mg/dL (7-17); Calcium 8.4 mg/dL (8.4-10.2); Carbon Dioxide 28 mmol/L (22-30); Chloride 105 mmol/L (98-107); Estimated CRCL calculation 89 ml/min; Estimated Glomerular Filt Rate > 60; Glucose 93 mg/dL (65-110); Potassium 3.5 mmol/L (3.4-5.0); Sodium 135 mmol/L (137-145)
[2023-06-21 08:00] VITALS: PULSE 70; RESP 18; O2SAT 95
[2023-06-21] MEDS: levoFLOXacin 750 MG/D5W 150 ML 750 MG/150 ML BAG 100 MG IVPB (08:00)
--- NOTE | 2023-06-21 08:05 | PM.IMPN ---
Progress Note: A&P Assessment and Plan (1) Pyelonephritis of right kidney: Code(s): N12 - Tubulo-interstitial nephritis, not specified as acute or chronic Status: Acute Assessment and Plan: UTI symptoms began 2 weeks ago including dysuria, frequency, and pressure with urination. PCP prescribed ciprofloxacin she completed. Symptoms never fully resolved and patient recently developed worsening suprapubic discomfort and lower back pain, decreased appetite, and fever. Urinalysis with cloudy appearance and 1+ protein, 1+ ketone, 1+ blood, positive nitrates, 3+ leukocytes, 3-5 RBC, > 100 WBC, and 4+ bacteria. CT abdomen/pelvis revealed right pyelonephritis with cystitis. Dr. Xiong (urology) examined patient today and plan to continue broad-spectrum antibiotics pending culture and sensitivity. If WBC rises or patient develops persistent fevers will need reimaging to rule out a developing abscess. Otherwise they plan plan is for outpatient CT in 4-6 weeks. Patient developed a 101.6 F fever on 06/17. WBC remain elevated 13.3, but were downtrending with current antibiotics. A new CT abdomen/pelvis cannot rule out abscess formation. Vancomycin discontinued due to infection likely being ecoli. Patient developed itching and a mild abdominal rash during meropenem administration. Meropenem was discontinued and patient started on Levaquin, however the bacteria is resistant. The patient will be started on ertapenem and receive Benadryl 30 minutes prior. Blood cultures 06/16 ecoli Urine culture ecoli with ESBL resistance New blood culture 06/19 NGTD Ertapenem Benadryl 30 minutes prior to Ertapenem administration care coordination consulted for home health PICC line ordered (2) Hyponatremia: Code(s): E87.1 - Hypo-osmolality and hyponatremia Status: Acute Assessment and Plan: Patient mildly hyponatremic on admission. Started on 80ml/hr NS IV. Sodium is responding appropriately to fluid resuscitation. Continue to monitor Na 80ml/hr NS IV (3) Hypothyroidism: Code(s): E03.9 - Hypothyroidism, unspecified Status: Acute Assessment and Plan: Patients home dose of levothyroxine 75mcg daily. TSH 0.170. Will decrease her dose to 50mcg daily. Patient received her morning dose already, so new dose will start 06/19/23. Free T4 1.17. Will have patient follow up with primary care provider outpatient to follow up on medication change. Time Spent With Patient Time with patient: 25 - 35 minutes Subjective Date/time seen: 06/21/23 08:05 Interval history: 57-year-old female with hypothyroidism who presented to the emergency department for fever with recent urinary tract infection. 2 weeks ago she developed UTI symptoms including dysuria, frequency, and pressure with urination. She then prescribed a course of ciprofloxacin by her PCP which she completed. Symptoms never fully resolved and patient developed worsening suprapubic pain and lower back pain, decreased appetite, and fever. Patient is sitting in bed comfortably with daughter at bedside. During patients night dose of the meropenem she developed itching and mild abdominal rash. The meropenem was discontinued at that time and Levaquin was started, however her current infection is resistant to Levaquin. She was started on ertapenem and will receive a small dose of Benadryl 30 minutes prior to medication administration. PICC line order placed and care coordination consulted for home health. She states that her appetite is getting better. She does report an episode of diarrhea. She denies dysuria, hematuria, burning with urination. She also notes that her back pain is better. She denies chest pain, shortness of breath, nausea/vomiting. Review of Systems Review of Systems: All systems reviewed & are unremarkable except as noted in HPI and below Exam Narrative: AF HR 70 RR 18 SpO2 95 BP 114/67 General: well nourished, well-developed female in no acute re
[2023-06-21] MEDS: valACYclovir HCL 500 MG TABLET PO ×2 (09:00→21:17)
--- NOTE | 2023-06-21 09:42 | WPDUROPN2 ---
Progress Note: A&P Assessment and Plan (1) Pyelonephritis of right kidney: Code(s): N12 - Tubulo-interstitial nephritis, not specified as acute or chronic Status: Acute Assessment and Plan: Urine culture with growth of E coli, also present in blood culture. She remains on broad-spectrum antibiotics while awaiting repeat blood cultures. WBC has normalized and she remains afebrile. No need for repeat imaging during admission. Will arrange outpatient follow-up with repeat CT scan in 4-6 weeks. Subjective Subjective Date/Time Seen: 06/21/23 09:42 Interval history: Lexii is feeling improved today. Energy levels are improved. She has no flank pain or back pain. Denies dysuria or hematuria. No nausea, vomiting, fever, chills. WBC normalized. Creatinine stable. She is afebrile and vital signs are stable. Review of Systems Review of Systems: All systems reviewed & are unremarkable except as noted in HPI and below Exam Narrative: General: Awake, alert, comfortable, no acute distress HEENT: Normocephalic, atraumatic, sclerae anicteric Respiratory: Normal respiratory effort, no accessory muscle use Abdomen: Nondistended, soft, nontender Skin: Normal coloration, warm and dry Neurologic: No focal neuro deficits noted Psychiatric: Appropriate mood and affect, judgment and insight intact Objective Data Vital Signs Vital Signs: Vital Signs - 24 hr 06/20/23 14:00 06/20/23 20:44 06/20/23 20:00 Temperature 97.7 F 97.9 F Pulse Rate 52 L 62 Respiratory Rate 18 18 Blood Pressure 119/69 110/73 Pulse Oximetry 98 98 98 Oxygen Delivery Room Air 06/21/23 05:21 06/21/23 08:00 Temperature 97.7 F Pulse Rate 70 70 Respiratory Rate 18 18 Blood Pressure 114/67 Pulse Oximetry 95 95 Oxygen Delivery Room Air Intake/Output Intake/Output: Intake & Output 06/18/23 06/19/23 06/20/23 06/21/23 23:59 23:59 23:59 23:59 Intake Total 2018 5405 3485.3 600 Output Total 2550 Balance -532 5405 3485.3 600 Meds/Results Medications: Active Medications Generic Name Dose Route Start Last Admin Trade Name Freq PRN Reason Stop Dose Admin Acetaminophen 650 mg 06/17/23 19:32 06/18/23 20:30 Acetaminophen 325 Mg Tablet PO 650 mg Q4H PRN Administration Mild Pain (1-3) or Fever Diphenhydramine HCl 25 mg 06/21/23 10:00 Diphenhydramine Hcl Inj 50 Mg/Ml Vial IV PUSH DAILY@0830 DEWAYNE Enoxaparin Sodium 40 mg 06/18/23 09:00 06/21/23 08:03 Enoxaparin 40 Mg/0.4 Ml Syringe SUB-Q Not Given DAILY DEWAYNE Sodium Chloride 1,000 mls @ 80 mls/hr 06/17/23 19:35 06/20/23 21:35 Normal Saline Iv IV CONT 80 mls/hr .[id number] DEWAYNE Administration Ertapenem 1 gm in 50 mls @ 100 mls/hr 06/22/23 10:30 Invanz 1 Gm/Ns 50 Ml IVPB DAILY DEWAYNE Levothyroxine Sodium 50 mcg 06/19/23 06:30 06/21/23 06:13 Levothyroxine Sodium 50 Mcg Tablet PO 50 mcg DAILY@0630 DEWAYNE Administration Ondansetron HCl 4 mg 06/17/23 19:32 06/18/23 14:19 Ondansetron Inj 4 Mg/2 Ml Vial IV PUSH 4 mg Q4H PRN Administration Nausea Tramadol HCl 25 mg 06/17/23 20:45 Tramadol Hcl (*Crx) 25 Mg Tablet PO Q6H PRN Pain Rated 4-6 Valacyclovir HCl 500 mg 06/19/23 07:51 06/21/23 09:00 Valacyclovir Hcl 500 Mg Tablet PO 500 mg Q12H PRN Administration fever blisters Zolpidem Tartrate 10 mg 06/17/23 23:45 06/20/23 22:53 Zolpidem Tartrate (*Crx) 5 Mg Tablet PO 10 mg HS PRN Administration Insomnia Radiology Results: ITS Impressions Abdomen/Pelvis CT 06/19/23 14:51 IMPRESSION: Moderate esophagitis/gastritis. Redemonstration of right renal findings that likely represent focal pyelonephritis. Developing phlegmon/abscess cannot be excluded. Considerable increase in the deep pelvic fluid. Labs Labs: Laboratory Results - last 24 hr 06/21/23 06:32 WBC 5.1 RBC 3.76 L Hgb 11.0 L Hct 33.6 L MCV 89.4
[2023-06-21 14:00] VITALS: BP 114/77; PULSE 70; RESP 18; TEMP 36.6; O2SAT 100
[2023-06-21] MEDS: diphenhydrAMINE HCl INJ 50 MG/ML VIAL 25 MG IV PUSH (14:00)
[2023-06-21] MEDS: ACETAMINOPHEN 325 MG TABLET 650 MG PO (14:04)
[2023-06-21] MEDS: ERTAPENEM 1 GM/NS 50 ML 1 GM/50 ML BAG IVPB (14:27)
[2023-06-21] MEDS: ZOLPIDEM TARTRATE (*CRX) 5 MG TABLET 10 MG PO (21:17)
[2023-06-21 21:34] VITALS: BP 103/67; PULSE 62; RESP 12; TEMP 36.1; O2SAT 98
[2023-06-22] MEDS: SODIUM CHLORIDE 0.9% IV 1,000 ML 80 ML IV CONT (02:35)
[2023-06-22 05:14] VITALS: BP 102/64; PULSE 51; RESP 13; TEMP 36.4; O2SAT 97
[2023-06-22] MEDS: LEVOTHYROXINE SODIUM 50 MCG TABLET PO (05:39)
[2023-06-22 07:33] LABS: Hemoglobin 12.3 g/dL (12.0-15.0); Mean Corpuscular HGB Conc 32.4 g/dl (32-36); Mean Corpuscular Volume 89.6 fl (80-100); Mean Platelet Volume 8.9 fl (7.4-10.4); Platelet Count Result 259 k/mm3 (150-375); Red Blood Count 4.24 M/mm3 (4.2-5.4); Red Cell Distribution Width 13.9 % (11.5-14.5); White Blood Count 5.3 K/mm3 (4.5-10.0)
[2023-06-22] MEDS: valACYclovir HCL 500 MG TABLET PO (07:37)
[2023-06-22 07:46] LABS: Anion Gap 4 mmol/L (4-12); Blood Urea Nitrogen 7 mg/dL (7-17); Carbon Dioxide 28 mmol/L (22-30); Chloride 105 mmol/L (98-107); Estimated CRCL calculation 89 ml/min; Estimated Glomerular Filt Rate > 60; Glucose 93 mg/dL (65-110); Potassium 3.5 mmol/L (3.4-5.0); Sodium 137 mmol/L (137-145)
[2023-06-22 07:50] LABS: Glucose Point of Care 89 mg/dl (65-105)
[2023-06-22 08:00] VITALS: O2SAT 97
[2023-06-22] MEDS: diphenhydrAMINE HCl INJ 50 MG/ML VIAL 25 MG IV PUSH (08:59)
[2023-06-22] MEDS: ERTAPENEM 1 GM/NS 50 ML 1 GM/50 ML BAG IVPB (09:53)
[2023-06-22] MEDS: ACETAMINOPHEN 325 MG TABLET 650 MG PO (12:28)
[2023-06-22 14:00] VITALS: BP 94/82; PULSE 54; RESP 18; TEMP 36.2; O2SAT 97
--- NOTE | 2023-06-22 15:23 | PM.DS ---
DS: Admitting Diagnosis Discharge Date 06/22/23 Admitting Diagnosis Pyelonephritis with bacteremia DS: Discharge Diagnosis Discharge Diagnosis (1) Pyelonephritis of right kidney: Code(s): N12 - Tubulo-interstitial nephritis, not specified as acute or chronic Status: Acute (2) Hyponatremia: Code(s): E87.1 - Hypo-osmolality and hyponatremia Status: Acute (3) Hypothyroidism: Code(s): E03.9 - Hypothyroidism, unspecified Status: Acute DS: Summary Hospital Course Hospital Course: This is a 57-year-old female with a past medical history of hypothyroidism and HSV that presents to the ED for evaluation of recent urinary tract infection. She was prescribed a 10 day course of ciprofloxacin that she completed. She then developed suprapubic discomfort and severe pain in her lower back in addition to nausea, decreased appetite and fever. In the ED: Her temperature was as high as 102.4?. Blood pressures have been on the lower end of normal but have improved with IV fluids. Labs were significant for WBC count of 14.6, sodium 130, lactic acid 1.0. Urine was nitrate and leukocyte esterase positive and showed 4+ bacteria and greater than [address] scan of the abdomen and pelvis showed abnormal perfusion of the posterolateral right mid kidney which could reflect focal pyelonephritis versus developing phlegmon/abscess and wall thickening of the urinary bladder consistent with cystitis. She has been started on broad-spectrum antibiotics . Her urine culture came back positive for E coli ESBL and her antibiotics were then transition to meropenem. Patient also had 1 bottle of blood culture come back positive for E coli ESBL as well. Her blood cultures were redrawn on 06/20/2023 remain negative for 48 hours. After 48 hours patient had midline placed in order for her to get IV antibiotics at home. Discussed with patient's primary care provider about managing her IV antibiotics. Home health was set up for the patient. Education given on managing home IV antibiotics. Her labs and vital signs are stable and she is medically clear for discharge at this time. Time Spent with Patient Time attestation: Total time spent providing and/or coordinating discharge services: Exam Narrative: GENERAL: Comfortable, no acute distress HENMT: moist mucous membranes EYES: EOM intact b/l NECK: no lymphadenopathy RESPIRATORY: clear to auscultation, no increased respiratory effort CARDIO: Regular rate and rhythm GI: soft, nontender, bowel sounds present SKIN/EXTREMITIES: no rashes, no edema, no redness or tenderness NEURO: PROM intact, answers questions appropriately, A&O x4 DS: Data Data Completed and Pending Labs on day of discharge: Labs from last 24 hours 06/22/23 06/22/23 07:44 07:22 WBC 5.3 RBC 4.24 Hgb 12.3 Hct 38.0 MCV 89.6 MCH 29.0 MCHC 32.4 RDW 13.9 Plt Count 259 MPV 8.9 Sodium 137 Potassium 3.5 Chloride 105 Carbon Dioxide 28 Anion Gap 4 L BUN 7 Creatinine 0.60 L Estim Creat Clear Calc 89 Estimated GFR > 60 Glucose 93 POC Capillary Glucose 89 Calcium 9.0 Preliminary micro results at discharge 06/20/23 10:44 Blood Culture - Preliminary Blood 06/20/23 10:44 Blood Culture - Preliminary Blood 06/17/23 19:38 Blood Culture - Preliminary Blood Escherichia Coli 06/17/23 19:38 Blood Culture - Preliminary Blood Discharge Plan Discharge Attending physician on discharge: Frantz Murphy Consulting providers: Jacob Xiong; Santa Baltazar Discharging Clinician: Dariana Gamez Patient Disposition: Home, Self-Care Activity: as tolerated Diet: regular Discharge Instructions: Follow instructions of infusion company. Daily ertapenem as prescribed. Take antibiotic through 06/03/2023. Take 1 tab of Benadryl 1 hour prior to antibiotic administration. Repeat labs in 1 week Discharge disposition: Take medic
--- NOTE | 2023-06-28 07:40 | PC.NURSE ---
Blood cx are negative.
== END 2023-06-22 16:08 | disposition home or self-care (01) | DRG 690 ==
LOC: ANHED 19:16 → ANH3MEDSUR 21:11
PROVIDERS: Physician Assistant; Student in an Organized Health Care Education/Training Program; Admitting Provider Internal Medicine; Emergency Provider Physician Assistant; PCP Physician Assistant; Visit Provider Family Medicine
DX: N10 Acute pyelonephritis (principal); E87.1 Hypo-osmolality and hyponatremia; R78.81 Bacteremia; E03.9 Hypothyroidism, unspecified; L27.1 Localized skin eruption due to drugs and medicaments taken internally; T36.1X5A Adverse effect of cephalosporins and other beta-lactam antibiotics, initial encounter; B96.20 Unspecified Escherichia coli [E. coli] as the cause of diseases classified elsewhere; Z87.891 Personal history of nicotine dependence
CPT/HCPCS: 36415; 36569; 74177; 80048; 80053; 81001; 82565; 82948; 83605; 83735; 84439; 84443; 84480; 85025; 85027; 87040; 87077; 87086; 87088; 87186; 96361; 96365; 96366; 96375; 96376; 99285; A9270; G0378; J0692; J0696; J1200; J1335; J1650; J1956; J2185; J2405; J3370; J7030; Q9967

== ENCOUNTER 2023-08-26 11:08 | Outpatient (CLI) | payer BC, SELFPAY ==
--- NOTE | ~2023-08-26 | CT_ITS ---
EXAMINATION: CT abdomen wo/w con DATE: 08/26/2023 11:39 INDICATION: Pyelonephritis. TECHNIQUE: Computed tomography (CT) of the abdomen was performed without and with 100 mL Omnipaque 35 0 intravenous contrast. Automated exposure control and iterative reconstruction technique were employ ed. The dose-length product was 309.84 mGy-cm. COMPARISON: CT abdomen and pelvis 06/19/2023 FINDINGS: The visualized portions of the lung bases demonstrate mild atelectasis. No pleural effusion . The heart size is normal. No pericardial effusion. There are bilateral breast implants. The liver, gallbladder, spleen, pancreas, adrenal glands, are normal. There is no urolithiasis. There are small areas of hypoenhancement and volume loss involving right kidney. Left kidney is normal. There are no dilated loops of bowel. There is mild lumbar spondylosis. IMPRESSION: 1. Right-sided pyelonephritis with interval improvement. Reviewed, dictated and finalized at location E.
[2023-08-26 11:24] LABS: Estimated Glomerular Filt Rate > 60
== END 2023-08-26 11:09 ==
LOC: MICIMG 11:09
PROVIDERS: PCP Physician Assistant; Visit Provider Urology
DX: N12 Tubulo-interstitial nephritis, not specified as acute or chronic (principal)
CPT/HCPCS: 74170; Q9967

== ENCOUNTER 2024-02-02 14:42 | Outpatient (CLI) | payer BC, SELFPAY ==
--- NOTE | ~2024-02-02 | US_ITS ---
EXAMINATION: US soft tissue UE RT DATE: 02/02/2024 14:58 INDICATION: Generalized enlarged lymph nodes. TECHNIQUE: Multiple grayscale and Doppler ultrasound images of the right upper limb were obtained. COMPARISON: None FINDINGS: In the right upper limb, there is a 1.5 x 1.0 x 1.4 cm mass. IMPRESSION: 1. 1.5 cm mass in the right upper limb. The differential diagnosis is broad and includes primary neop lasm, peripheral nerve sheath tumor, reactive lymphadenopathy, and cameron metastatic disease. Ultrasou nd-guided core needle biopsy is recommended. Reviewed, dictated and finalized at location A. [employer] IMPRESSION: 1. 1.5 cm mass in the right upper limb. The differential diagnosis is broad and includes primary neoplasm, peripheral nerve sheath tumor, reactive lymphadenop athy, and cameron metastatic disease. Ultrasound-guided core needle biopsy is rec ommended.
== END 2024-02-02 14:43 | disposition home or self-care (01) ==
PROVIDERS: PCP Physician Assistant; Visit Provider Physician Assistant
DX: R59.1 Generalized enlarged lymph nodes (principal)
CPT/HCPCS: 76882

== ENCOUNTER 2024-02-17 09:23 | Outpatient (CLI) | payer BC, SELFPAY ==
--- NOTE | ~2024-02-17 | US_ITS ---
EXAM: Focused ultrasound examination of the soft tissues of the right upper extremity Aborted biopsy of a palpable abnormality within the right medial upper arm. HISTORY: localized swelling, mass, lump, RT upper limb TECHNIQUE: Sonographic evaluation of the soft tissues of the right upper arm were performed assessing grayscale appearance and color Doppler flow. COMPARISON: 02/02/2024. FINDINGS: Sonographic evaluation of the soft tissues of the medial right upper extremity demonstrate demonstrat es a neural continuity and mild mural thickening both proximally and distal to the oval shaped focus of mixed echogenicity. Punctate areas of cystic change are identified. Vascular flow is noted. This f inding sonographically is suspicious for a nerve sheath tumor. The medial portion of the right upper extremity was then prepped and draped in the standard sterile fashion. 1% lidocaine without epinephrine was utilized for local analgesia. During lidocaine instillation, the patient began to feel the needle sensation in her first and second digit, within a radial nerve distribution. The biopsy was aborted at that time, all devices removed, and a sterile dressing applied. 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 Contrast-enhanced MRI is recommended with post-MRI surgical consultation. These findings and recommendations were discussed both with the patient as well as the patient's prim laura clinician (Antoinette Cloud APRN). Reviewed, dictated and finalized at location A. 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 Contrast-enhanced MRI is recommended with post-MRI surgical consultatio n. These findings and recommendations were discussed both with the patient as well as the patient's optical store manager (Antoinette Cloud APRN).
== END 2024-02-17 09:24 | disposition home or self-care (01) ==
PROVIDERS: PCP Physician Assistant; Visit Provider Physician Assistant
DX: R22.31 Localized swelling, mass and lump, right upper limb (principal)
CPT/HCPCS: 20206; 76942

== ENCOUNTER 2024-03-13 12:34 | Outpatient (CLI) | payer BC, SELFPAY ==
--- NOTE | ~2024-03-13 | MR_ITS ---
MRI of the right humerus CLINICAL HISTORY: Mass TECHNIQUE: Axial T1-weighted, STIR, and T1 fat-sat images, coronal T1-weighted and STIR images, and s agittal T1-weighted and STIR images were acquired. Following intravenous administration of 12 cc Mult iHance gadolinium, T1-weighted fat-sat imaging was performed in the axial and coronal and sagittal pl anes. FINDINGS: Bone marrow signals are unremarkable. No fracture or osteitis. No marrow edema of the humer us. No periosteal reaction seen. Visualized musculature the upper abdomen is unremarkable. No muscle atrophy or edema seen. Visualized tendons are grossly intact. No joint effusion evident at the elbow or shoulder. At the medial aspect of the upper arm, near the location of the marker, there is a 1.3 x 1.0 x 1.4 cm ovoid mass, nearly isointense to muscle on T1-weighted images, and markedly T2 hyperintense (series 5 image 29). Lesion demonstrates avid postcontrast enhancement. IMPRESSION: 1.3 x 1.0 x 1.4 cm enhancing ovoid mass at the medial aspect of the upper arm, as detailed above, mos t compatible with schwannoma. Reviewed, dictated and finalized at location M. N[facility] WEIGHER IMPRESSION: 1.3 x 1.0 x 1.4 cm enhancing ovoid mass at the medial aspect of the upper arm, as detailed above, most compatible with schwannoma.
== END 2024-03-13 12:35 | disposition home or self-care (01) ==
LOC: MICIMG 12:34
PROVIDERS: PCP Physician Assistant; Visit Provider Physician Assistant
DX: R22.31 Localized swelling, mass and lump, right upper limb (principal)
CPT/HCPCS: 73220; A9577

== ENCOUNTER 2024-09-04 12:15 | Outpatient (CLI) | payer BC, SELFPAY ==
[2024-09-04 12:44] LABS: Add Urine Microscopic? YES; Appearance Urine Clear (Clear); Bacteria Urine None Seen /hpf; Bilirubin Urine Negative (Negative); Blood Urine Negative (Negative); Color Urine Yellow (Yellow); Glucose Urine UA Negative (Negative); Ketones Urine Negative (Negative); Leukocyte Esterase Ur Trace LEU/UL (Negative); Nitrate Urine Negative (Negative); Non Pathogenic Casts 0-2; Protein Urine Negative (Negative); RBC Urine 0-2 /hpf (0-2); Specific Grav Ur 1.004 (1.001-1.035); Squamous Epithelial Cell Urine None Seen /hpf (Few); Urobilinogen Urine 0.2 mg/dL (<2.0); WBC Urine 0-5 /hpf (0-3)
--- OUTSIDE RECORDS SUMMARY | 2024-09-04 13:10 | XMS_ITS | Clinical Summary ---
Author Organization [facility] on Address [address] [place] [address] CHARITY Milligan [id number] Phone Care Team Providers Care Director Of Student Affairs Name Role Phone Unavailable Primary Care Provider Unavailabl e Encounters Date Type Department Care Team Description 08/16/2024 External Device Data [facility] ABSTRACTION Provider, Abstract 08/15/2024 External Device Data [facility] ABSTRACTION Provider, Abstract 08/14/2024 External Device Data [facility] ABSTRACTION Provider, Abstract 07/17/2024 External Device Data [facility] ABSTRACTION Provider, Abstract 07/17/2024 External Device Data [facility] ABSTRACTION Provider, Abstract 06/13/2024 External Device Data [facility] ABSTRACTION Provider, Abstract 06/05/2024 External Device Data [facility] ABSTRACTION Provider, Abstract 06/05/2024 External Device Data [facility] ABSTRACTION Provider, Abstract from Last 3 Months Social History Tobacco Use Types Packs/Day Years Used Date Smoking Tobacco: Never Assessed Comments Unknown Sex and Gender Information Value Date Recorded Sex Assigned at Not on file Legal Sex Female 10:32 AM [employer] Gender Identity Not on file Sexual Orientation Not on file Plan of Treatment Health Maintenance Due Date Last Done Comments DTAP/TDAP/TD VACCINES (1 - Tdap) 1984 HEPATITIS B VACCINES (1 of 3 - 19+ 3-dose series) 08/1984 HPV/Cotest (21-29) 1986 CERVICAL CANCER SCREENING 08/01/1995 HPV/Cotest (30-65) 08/01/1995 PAP SMEAR 08/01/1995 BREAST CANCER SCREENING 2005 COLORECTAL SCREENING 2010 Colorectal Cancer Screening 2010 FIT-DNA Q 3 years 2010 FIT/FOBT Q 1 year 2010 Flex Sig/CT Colonography Q 5 years 2010 ZOSTER VACCINE (1 of 2) 08/01/2015 INFLUENZA VACCINE (#1) 2023 Insurance [facility] BLUE ACCESS/TRUE BLUE PPO
--- OUTSIDE RECORDS SUMMARY | 2024-09-04 13:11 | XMS_ITS | Data Portability ---
Author Organization [facility]rena[facility]thurd[facility] H Address [address] [place] [address] Care Team Providers Care Optical Engineering Technician Name Role Phone NALLELY JOHN Primary Care Provider Unavailab le Assessment Encounter Date Assessment Date Assessment LastModified by Organization Details LastModified Time 06/30/2023 06/30/2023 mammogram and dexa july 12 scheduled. colonoscopy completed 7 years ago, all clear 10 year total Not available 06/30/2023 11:28:09 01/31/2024 01/31/2024 colonoscopy 8 years ago, given 10 year clearance Not available 01/31/2024 15:59:19 06/25/2024 06/25/2024 mammogram and dexa july 12 scheduled. colonoscopy completed 7 years ago, all clear 10 year total Not available 06/25/2024 12:55:55 Plan of Treatment Reminders Order Date Submit Date Provider Last Modified By Organization Details Last Modified Time Details Appointments None recorded. Lab CMP, serum or plasma 2024 025 [email or web address] [facility], [address], [place], [address], 12:57:28 CBC w/ auto diff 2024 025 [email or web address] [facility], [address], [place], [address], 12:57:27 vitamin B12 + folate, serum or blood 2024 025 [email or web address] [facility], [address], [place], [address], 5 12:57:28 lipid panel, serum 2024 025 [email or web address] [email or web address] [facility], [address], [address], [place], [address], 5 12:57:27 HbA1c (hemoglobi n A1c), blood 2024 025 [email or web address], [address], [address], [place], [address], 5 12:57:27 TSH + free T4, serum 2024 025 [email or web address] [email or web address] [facility], [address], [address], [place], [address], 5 12:57:27 T3, free, serum or plasma 2024 025 [email or web address], [address], [address], [place], [address], 5 12:57:27 HbA1c (hemoglobi n A1c), blood 2023 024 [email or web address] [facility], [address], [address], [place], [address], 4 10:46:47 CBC w/ auto diff 2023 024 ServerEnginesnlpn [facility], [address], [address], [place], [address], 4 10:47:22 CMP, serum or plasma 2023 024 [employer] [facility], [address], [address], [place], [address], 4 10:46:24 iron + TIBC + ferritin, serum 2023 024 DAYO [facility], [address], [address], [place], [address], 4 09:54:50 vitamin D, 25-hydroxy , total, serum 2023 024 rust [facility], [facility], [address], [place], [address], 4 10:47:17 TSH + free T4, serum 2023 024 rust [facility], [address], [address], [place], [address], 4 10:46:38 CMP, serum or plasma 2023 024 [facility], [address], [place], [address], 4 13:02:24 CBC w/ auto diff 2023 024 [facility], [address], [address], [place], [address], 4 13:02:24 vitamin B12 + folate, serum or blood 2023 024 [email or web address] [facility], [address], [place], [address], 4 15:56:54 lipid panel, serum 2023 024 [facility], [address], [place], [address], 4 13:02:24 HbA1c (hemoglobi n A1c), blood 2023 024 [facility], [address], [place], [address], 4 13:02:24 TSH + free T4, serum 2023 024 [facility], [address], [address], [place], [address], 4 13:02:24 T3, free, serum or plasma 2023 024 [facility], [address], [address], [place], [address], 4 13:02:24 Referral None recorded. Procedures None recorded. Surgeries None recorded. Imaging MAMMO, screening, digital, bilateral 2024 025 [facility], [address], [place], [address], 5 19:00:04 US, upper arm 2023 024 [email or web address] [facility], [address], [place], [address], 4 15:02:32 Medication Orders levothyrox ine 50 mcg tablet 2024 025 [id number], [address] [place] [address], [id number], 5 12:55:41 valacyclov ir 1 gram tablet 2023 024 [id number], [address], [place], [id number], 4 11:35:22 Patient TargetsNo targets recorded. Patient InstructionsNo instructions recorded. Reason for Referral None Reported. Results Created Date Observation Date Name Description Value Unit Range Abnormal Flag Note LastModifiedBy Organization Detail LastModifiedTime 06/18/19 24 06/17/2023 CT, abdom en + pelvi s, w/ contr ast No observ ation record ed. [facility] [address], [place], [address], 06/21/2023 10:27:14 06/20/19 24 06/19/2023 CT, abdom en + pelvi s, w/ contr ast No observ ation record ed. [facility] [address], [place], [address], 06/21/2023 10:28:22 07/13/19 24 07/13/2023 MAMMO , scree derrell, digit al, bilat eral No observ ation record ed. [facility] [address], [place], [address], 07/20/2023 13:28:53 07/13/19 24 07/13/2023 DEXA No observ ation record ed. [facility] ([facility]iatry Department) [address], [place], [address], 07/20/2023 13:28:35 08/29/19 24 08/26/2023 CT, abdom en + pelvi s, w/wo contr ast No observ ation record ed. [email or web address] [facility] [address], [place], [address], 08/29/2023 14:06:51 02/03/20 24 02/02/2024 US, upper arm No observ ation record ed. [facility] [address], [place], [address], 02/06/2024 11:10:17 02/17/20 24 02/17/2024 ultra sound guide d core biops y (PROC ) No observ ation record ed. [facility] (Imaging) [address], [place], [address], 02/20/2024 10:09:02 03/13/20 24 03/13/2024 MRI, upper arm, w/wo contr ast No observ ation record ed. DAYO [facility] [address], [place], [address], 03/23/2024 09:23:07 07/17/19 25 07/16/2024 MAMMO , scree derrell, digit al, bilat eral No observ ation record ed. [facility] [address] [place], [address], 2024 13:02:48 Result Notes None recorded. Problems Name Problem SNOMED Code Status Onset Date Resolution Date Notes Provider Name and Address Organization Details Recorded Time Hypothyroidism 56643942 Active 2023 MARTINEZ Sow Attn: Billy russo,[address] [facility], [place], [address], [place] [facility] 4 22:09:07 Herpes labialis 6079289 Active 2023 MARTINEZ Sow Attn: Accountin g,[address] [facility], [place], [address], [place] [facility] 4 22:09:08 Long-term drug therapy Active 2023 MARTINEZ Sow Attn: Billy g,[address] [facility], [place], [address], [place] [facility] 4 22:09:11 Fatigue 72348630 Active 2023 MARTINEZ Sow Attn: Accountin g,[address] [facility], [place], [address], [place] [facility] 4 19:04:07 Blood glucose outside reference range 647409734 Active 2023 MARTINEZ Sow Attn: Billy g,[address] [facility], [place], [address], [place] [facility] 4 19:04:13 Insomnia 568644430 Active 2024 MARTINEZ Sow Attn: Billy russo,[address] [facility], [place], [address], [facility] 12:52:59 Body mass index 20-24 - normal 106899834 Active 2024 Stephanie carreon, [facility] 13:00:13 Problem Notes None recorded. Procedures Surgical History Date Name Laterality Status Provider Name and Address Organization Details Recorded Time removal of acoustic neuroma completed Ramón Vann MA [facility] 06/25/2024 12:33:40 Imaging Results None recorded. Procedure Notes None recorded. Medical Equipment None Reported. Allergies Allergen ID Allergen Name Allergen Category Reaction Reaction Severity Criticality Documentation Date Start Date Code Code System Note Provider Name and Address Organization Details Recorded Time 073255 Bactrim medicatio n Not available Not available Not available 06/03/2023 43295 9 RxNorm Stephanie carreon, [facility] 14:53:19 Medications Name Sig Start Date Stop Date Status Note LastModified by Organization Details LastModified Time valacyclo vir 1 gram tablet TAKE 2 TABLETS BY MOUTH EVERY 12 HOURS FOR 1 DAY NEEDED active Not Available Not Available No t Available metronida zole 0.75 % (37.5 mg/5 gram) vaginal gel INSERT 1 APPLICAT ORFUL VAGINALL Y EVERY DAY AT BEDTIME FOR 5 DAYS 01/30 completed Not Available Not Available Not Available valacyclo vir 500 mg tablet TAKE 1 TABLET BY MOUTH EVERY 12 HOURS NEEDED 06/29 completed Not Available Not Available Not Available ciproflox acin 500 mg tablet Take 1 tablet every 12 hours by oral route. 2024 active Not Available Not Available Not Avai lable levothyro xine 50 mcg tablet TAKE 1 TABLET BY MOUTH EVERY DAY active Not Available Not Available No t Available Synthroid 75 mcg tablet TAKE 1 TABLET BY MOUTH EVERY DAY IN THE MORNING 06/23 completed switched in the hospital Not Available Not Available Not Available mupirocin 2 % topical ointment APPLY SMALL AMOUNT TOPICALL Y TO THE AFFECTED AREA ON FINGER THREE TIMES DAILY 01/30 completed Not Available Not Available Not Available zolpidem 10 mg tablet Take every day by oral route for 30 days. active Not Available Not Available No t Available methylpre dnisolone 4 mg tablets in a dose pack FOLLOW PACKAGE DIRECTIO NS 01/30 completed Not Available Not Available Not Available amoxicill in 875 mg-potass ium clavulana te 125 mg tablet TAKE 1 TABLET BY MOUTH TWICE DAILY 06/25 completed Not Available Not Available Not Available Premarin 0.45 mg tablet TAKE 1 TABLET BY MOUTH DAILY CYCLICAL LY 01/30 completed Not Available Not Available Not Available nitrofura ntoin monohydra te/macroc rystals 100 mg capsule TAKE 1 CAPSULE BY MOUTH TWICE DAILY 06/25 completed Not Available Not Available Not Available Paxlovid 300 mg (150 mg x 2)-100 mg tablets in a dose pack TK 2 NIRMATRE LVIR TS AND 1 RITONAVI R T TOGETHER PO BID FOR 5 DAYS 06/25 completed Not Available Not Available Not Available Vitals Date Recorded Systolic blood pressure Diastolic blood pressure Provider Name and Address Organization Details Last Updated DateTime 06/25/2024 110 mm[Hg] 80 mm[Hg] MARTINEZ Sow Attn: Accounting,[address] [place], [address], [facility] 06/25/2024 14:52:14 Date Recorded Body height Body mass index (BMI) Body weight Respiratory rate Oxygen saturation Oxygen saturation in Arterial blood by Pulse oximetry Heart rate Systolic blood pressure Diastolic blood pressure Provider Name and Address Organization Details Last Updated DateTime 172.72 cm 20.7 kg/m2 10706.5 6 g 20 /min 98 % 98 % 78 /min 106 mm[Hg] 70 mm[Hg] Ramón Vann MA [facility] 12:36:00 Date Recorded Systolic blood pressure Diastolic blood pressure Provider Name and Address Organization Details Last Updated DateTime 06/30/2023 104 mm[Hg] 70 mm[Hg] MARTINEZ Sow Attn: Accounting,[address] [place], [address], [facility] 06/30/2023 11:37:58 Date Recorded Body height Body mass index (BMI) Body weight Respiratory rate Oxygen saturation Oxygen saturation in Arterial blood by Pulse oximetry Heart rate Systolic blood pressure Diastolic blood pressure Provider Name and Address Organization Details Last Updated DateTime 4 172.72 cm 20.2 kg/m2 16669.7 9 g 20 /min 100 % 100 % 74 /min 128 mm[Hg] 78 mm[Hg] Ramón Vann MA [place] [facility] 11:17:04 Date Recorded Body height Body mass index (BMI) Body weight Respiratory rate Oxygen saturation Oxygen saturation in Arterial blood by Pulse oximetry Heart rate Systolic blood pressure Diastolic blood pressure Provider Name and Address Organization Details Last Updated DateTime 4 172.72 cm 21.3 kg/m2 50839.9 3 g 20 /min 98 % 98 % 77 /min 108 mm[Hg] 72 mm[Hg] Ramón Vann MA [facility] 15:34:27 Social History Question Answer Notes LastModified by Organizat ion Details LastModified Time Tobacco Smoking Status Former Smoker quit 10 years Ramón Vann MA null, [facility] 06/30/2023 11:12:31 Do You Have An Advance Directive? Yes SON Information not available 01/31/2024 Are You Blind Or Do You Have Difficulty Seeing? No Information not available 06/30/2023 What Is Your Level Of Caffeine Consumption? Occasional Coffee- 6 MO AGO Information not available 06/30/2023 In The 14 Days Before Symptom Onset, Have You Had Close Contact With A Laboratory-confir med COVID-19 While That Case Was Ill? No Information not available 06/30/2023 In The 14 Days Before Symptom Onset, Have You Had Close Contact With A Person Who Is Under Investigation For COVID-19 While That Person Was Ill? No Information not available 06/30/2023 Have You Been To An Area Known To Be High Risk For COVID-19? No Information not available 06/30/2023 Are You Deaf Or Do You Have Serious Difficulty Hearing? No Information not available 06/30/2023 What Type Of Diet Are You Following? REGULAR Information not available 06/30/2023 Are There Any Guns Present In Your Home? No Information not available 06/30/2023 What Was The Date Of Your Most Recent Tobacco Screening? 06/25/2024 Information not available 06/25/2024 What Is Your Current Pack Years? 20-29packyears Information not available 06/30/2023 Do You Use Your Seat Belt Or Car Seat Routinely? Yes Information not available 06/30/2023 Do You Have Smoke And Carbon Monoxide Detectors In Your Home? Yes Information not available 06/30/2023 At What Age Did You Start Smoking Tobacco? 16 Information not available 06/30/2023 How Much Tobacco Do You Smoke? No Information not available 06/30/2023 Do You Use Sunscreen Routinely? Yes Information not available 06/30/2023 Has Tobacco Cessation Counseling Been Provided? No Information not available 01/31/2024 Sex: Female Functional Status Question Answer Note LastModified by Organizat ion Details LastModified Time Do you use any illicit or recreational drugs? No Information not available 06/30/2023 Do you or have you ever used any other forms of tobacco or nicotine? No Information not available 06/30/2023 What is your level of alcohol consumption? Occasional Information not available 06/30/2023 Are you able to care for yourself? Yes Information n ot available 06/30/2023 What is your exercise level? Moderate Information not available 06/30/2023 Mental Status Question Answer Note LastModified by Organization D etails LastModified Time Do you feel stressed (tense, restless, nervous, or anxious, or unable to sleep at night)? [id number] Information not available 06/30/2023 Family History Nothing Reported. Medical History No medical history recorded. Gynecological History Statement/Question Response Menses Monthly N Current Control Method Menopause Obstetrics History GPAL:G 2 P 2 0 0 2 Type Value Multiple Births 0 Full Term 2 Induced 0 Spontaneous 0 Premature 0 Living 2 Total 2 Past Encounters Encounter ID Performer Location Encounter Start Date Encounter Closed Date Diagnosis/Indication Diagnosis SNOMED-CT Code Diagnosis ICD10 Code Diagnosis Note [id number] Willie Bentley MD [facility] [place] [address] [place] [id number] 06/30/2023 11:02:23 06/30/2023 14:09:00 Hypothyroidism 40435301 E03.9 stable on levothyrox ine 50mcg daily and due for updated labs later in the month. Cholesterol screening 27 3552946 Z13.220 fasting lipids are also due later in month. Diabetes m ellitus screening 104297339 Z13.1 annual a1c screening ordered. Long-term drug therapy 347686160 Z79.899 routine cbc, cmp and b12, folate ordered for end of month evaluation . Pyelonephritis 50600217 N12 pt is improving and finalizing her IV abx therapy (ertapenem ) with home health. Herpes labialis 5771083 B00.1 Rx for valtrex 1gm two bid x 1 day for cold sore flare up [id number] Willie Bentley MD [facility] [employer] [address] [place] [id number] 01/31/2024 15:23:56 02/15/2024 15:02:32 Generalized enlarged lymph nodes 582646454 R59.1 Questionab le lymph node versus other type of nodule refer patient for an ultrasound of the upper arm nonvascula r Fatigue 55143514 R53.83 Screening CBC, CMP, iron studies, vitamin-D and thyroid panel for persistent fatigue Blood gluc ose outside reference range 466521515 R73.09 Following A1c with blood glucose slightly elevated [id number] Willie Bentley MD [facility] [employer] [address] [place] [id number] 06/25/2024 12:17:22 06/25/2024 12:59:32 Hypothyroidism 66954238 E03.9 stable on levothyrox ine 50mcg daily. Medication refilled and labs due again in January examination 559031778 Z00.01 Annual wellness exam completed with routine labs ordered for January Insomnia 393659552 G47.0 0 Patient is taking half tab ambien prn use. Long-term drug therapy 870633775 Z79.899 Next set of labs will be due January 31 Cholesterol screening 27 5058236 Z13.220 Fasting lipids will be due in January Diabetes m ellitus screening 985340723 Z13.1 annual a1c screening ordered for January Screening mammography 614176 Z12.31 Annual mammogram ordered Body mass index 20-24 - normal 649428537 Z68.20 BMI 20.7 Health Concerns Section Related Observation LastModified by Organization Detai ls LastModified Time None Recorded Concern Status LastModified by Organization Details LastModified Time None Recorded Advance Directives Directive Y: SON Payers Encounter Date Sequence Insurance Name Policy Number Policy Santos Covered Member ID Santos Member ID Guarantor Name 06/30/2023 1 [place] [id number] [id number] [employer] [place] 01/31/2024 1 [place] [id number] Lexii Lizabeth [id number] [employer] [place] 06/25/2024 1 [place] [id number] Lexii Lizabeth [id number] Lexii Lizabeth Notes Date Note Type Note Provider Name and Address Organization Details Recorded Time 06/30/19 24 text/htm l Generic HPI TemplateReported bypatient.Notes:patient was admitted to [facility] for pyelonephritits and discharged on picc line with IV abx. She is finishing up the last days of treatment with home health. she is feeling so much better. she was very ill upon arrival to the hospital.ThyroidReported bypatient.Quality:improving Severity:mild Onset/Timing:better Context:history of hypothyroidism Modifying Factors:medication Exercisegets exercise Associated Symptoms:no cold intolerance; no weight loss; no weight gain; no hoarseness; no difficulty swallowing; no neck masses; no palpitations; no chest pain; no constipation; no diarrhea; no joint pain MARTINEZ Sow Attn: Accounting,[address] [place], [address], [facility] 07/10/2023 22:09:55 01/31/20 24 text/htm l Patient report an enlarged lump in her right upper inner arm. She first noticed it recently it is slightly tender and she has had no trauma. She has not found any other lump nearby including in the breast. She has reported some generalized fatigue but other than that has no other complaints. MARTINEZ Sow Attn: Accounting,[address] [facility], [place], [address], [facility] 02/19/2024 19:04:29 06/26/19 25 text/htm l InsomniaReported bypatient.Notes:Patient uses Ambien infrequently for sleep assistanceThyroidReported bypatient.Quality:improving Severity:mild Onset/Timing:better Context:history of hypothyroidism Modifying Factors:medication Exercisegets exercise Associated Symptoms:no cold intolerance; no weight loss; no weight gain; no hoarseness; no difficulty swallowing; no neck masses; no palpitations; no chest pain; no constipation; no diarrhea; no joint painNotes:Patient is due for a thyroid medication refill 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 Latasha Corley at [facility] in [place]. 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 MARTINEZ Sow Attn: Accounting,[address] [facility], [place], [address], [facility] 06/25/2024 14:57:23 OBGyn Episode No OBEpisode recorded.
--- OUTSIDE RECORDS SUMMARY | 2024-09-04 13:11 | XMS_ITS | Data Portability ---
Author Organization [facility], Main Office Address [address] [place] [address] Assessment Encounter Date Assessment Date Assessment LastModified by Organization Details LastModified Time 09/13/2022 09/13/2022 mammogram UTD 06/17. colonoscopy 2017, repeat 10 years [email or web address] Not available 09/23/2022 23:45:25 Plan of Treatment Reminders Order Date Submit Date Provider Last Modified By Organization Details Last Modified Time Details Appointments None recorded . Lab CBC w/ auto diff 023 09/14/19 [email or web address] [facility], [address], [place], [address], 3 15:30:58 CMP, serum or plasma 023 09/14/19 [email or web address] [facility], [address], [place], [address], 3 15:30:58 lipid panel, serum 023 09/14/19 [email or web address] [facility], [address], [place], [address], 3 15:30:58 HbA1c (hemoglo bin A1c), blood 023 09/14/19 [email or web address] [facility], [address], [place], [address], 3 15:30:58 TSH + free T4, serum 023 09/14/19 23 [email or web address] [facility], [address], [place], [address], 3 15:30:57 T3, free, serum or plasma 023 09/14/19 23 [email or web address] [facility], [address], [place], [address], 3 15:30:58 Referral None recorded . Procedures None recorded . Surgeries None recorded . Imaging DEXA 023 09/14/19 23 [email or web address] Not available 3 15:30:19 Medication Orders None recorded . Patient TargetsNo targets recorded. Patient InstructionsNo instructions recorded. Reason for Referral None Reported. Results Created Date Observation Date Name Description Value Unit Range Abnormal Flag Note LastModifiedBy Organization Detail LastModifiedTime 08/01/1908/01/2020 HbA1c (hemo globi n A1c), blood hemoglobin A1C 5.7 % 4.8-5. 6 above high normal Predi abete s: 5.7 - 6.4 Diabe derrick: >6.4 Glyce jesi contr ol for adult s with diabe derrick: <7.0 Not Available [facility] ([facility]) [address] [place], [address], 08/01/2020 06:23:07 08/01/19 21 08/01/2020 lipid panel , serum cholesterol, total 185 mg/dL 100-19 9 Not Available [facility] ([facility]) [address] [facility], [place], [address], 08/01/2020 06:23:06 08/01/19 21 08/01/2020 lipid panel , serum triglyceride s 94 mg/dL 0-149 Not Available [facility] ([facility]) [address] [place], [address], 08/01/2020 06:23:06 08/01/19 21 08/01/2020 lipid panel , serum HDL cholesterol 73 mg/dL >39 Not Available [facility] ([facility]) [address] [place], [address], 08/01/2020 06:23:06 08/01/19 21 08/01/2020 lipid panel , serum VLDL cholesterol sneha 17 mg/dL 5-40 Not Available [facility] ([facility]) [address] [place], [address], 08/01/2020 06:23:06 08/01/19 21 08/01/2020 lipid panel , serum LDL chol calc ([facility]) 95 mg/dL 0-99 Not Available [facility] ([facility]) [address] [facility], [place], [address], 08/01/2020 06:23:06 08/01/19 21 08/01/2020 lipid panel , serum comment: fuselage framer Not Available [facility] ([facility]) [address] [place], [address], 08/01/2020 06:23:06 08/01/1908/01/2020 lipid panel , serum T. chol/HDL ratio 2.5 ratio 0.0-4. 4 T. Chol/ HDL Ratio Men Women 1/2 Avg.R isk 3.4 3.3 Avg.R isk 5.0 4.4 2X Avg.R isk 9.6 7.1 3X Avg.R isk 23.4 11.0 Not Available [facility] ([facility]) [address] [place], [address], 08/01/2020 06:23:06 08/01/1908/01/2020 CMP, serum or plasm a glucose 99 mg/dL 65-99 Not Available [facility] ([facility]) [address] [place], [address], 08/01/2020 06:23:06 08/01/1908/01/2020 CMP, serum or plasm a BUN 16 mg/dL 6-24 Not Available [facility] ([facility]) [address] [place], [address], 08/01/2020 06:23:06 08/01/19 21 08/01/2020 CMP, serum or plasm a creatinine 0.82 mg/dL 0.57-1 .00 Not Available [facility] ([facility]) [address] [facility], [place], [address], 08/01/2020 06:23:06 08/01/19 21 08/01/2020 CMP, serum or plasm a eGFR if nonafricn AM 81 mL/mi n/1.7 3 >59 Not Available [facility] ([facility]) [address] [facility], [place], [address], 08/01/2020 06:23:06 08/01/19 21 08/01/2020 CMP, serum or plasm a eGFR if africn AM 93 mL/mi n/1.7 3 >59 Lab [facility] curre ntly repor ts eGFR in compl iance with the curre nt recom menda tions of the [facility] n[facility] ation . [facility] will updat e repor ting as new guide lines are publi shed from the NKF-A SN Task force . Not Available [facility] ([facility]) [address] [facility], [place], [address], 08/01/2020 06:23:06 08/01/1908/01/2020 CMP, serum or plasm a BUN/creatini ne ratio 20 9-23 Not Available [facility] ([facility]) [address] [facility], [place], [address], 08/01/2020 06:23:06 08/01/1908/01/2020 CMP, serum or plasm a sodium 139 mmol/ L 134-14 4 Not Available [facility] ([facility]) [address] [place], [address], 08/01/2020 06:23:06 08/01/19 21 08/01/2020 CMP, serum or plasm a potassium 4.2 mmol/ L 3.5-5. 2 Not Available [facility] ([facility]) [address] [place], [address], 08/01/2020 06:23:06 08/01/19 21 08/01/2020 CMP, serum or plasm a chloride 102 mmol/ L 96-106 Not Available [facility] ([facility]) [address] [place], [address], 08/01/2020 06:23:06 08/01/19 21 08/01/2020 CMP, serum or plasm a carbon dioxide, total 25 mmol/ L 20-29 Not Available [facility] ([facility]) [address] [place], [address], 08/01/2020 06:23:06 08/01/19 21 08/01/2020 CMP, serum or plasm a calcium 9.6 mg/dL 8.7-10 .2 Not Available [facility] ([facility]) [address] [place], [address], 08/01/2020 06:23:06 08/01/19 21 08/01/2020 CMP, serum or plasm a protein, total 6.9 g/dL 6.0-8. 5 Not Available [facility] ([facility]) [address] [place], [address], 08/01/2020 06:23:06 08/01/19 21 08/01/2020 CMP, serum or plasm a albumin 4.6 g/dL 3.8-4. 9 Not Available [facility] ([facility]) [address] [place], [address], 08/01/2020 06:23:06 08/01/19 21 08/01/2020 CMP, serum or plasm a globulin, total 2.3 g/dL 1.5-4. 5 Not Available [facility] ([facility]) [address] [place], [address], 08/01/2020 06:23:06 08/01/19 21 08/01/2020 CMP, serum or plasm a A/G ratio 2.0 1.2-2. 2 Not Available [facility] ([facility]) [address] [place], [address], 08/01/2020 06:23:06 08/01/19 21 08/01/2020 CMP, serum or plasm a bilirubin, total 0.7 mg/dL 0.0-1. 2 Not Available [facility] ([facility]) [address] [place], [address], 08/01/2020 06:23:06 08/01/19 21 08/01/2020 CMP, serum or plasm a alkaline phosphatase 71 IU/L 39-117 Not Available [facility] ([facility]) [address] [place], [address], 08/01/2020 06:23:06 08/01/1908/01/2020 CMP, serum or plasm a AST (SGOT) 20 IU/L 0-40 Not Available [facility] ([facility]) [address] [place], [address], 08/01/2020 06:23:06 08/01/1908/01/2020 CMP, serum or plasm a ALT (SGPT) 16 IU/L 0-32 Not Available [facility] ([facility]) [address] [place], [address], 08/01/2020 06:23:06 08/01/1908/01/2020 CBC w/ auto diff WBC 4.6 x10e3 /uL 3.4-10 .8 Not Available [facility] ([facility]) [address] [place], [address], 08/01/2020 06:23:06 08/01/19 21 08/01/2020 CBC w/ auto diff RBC 4.63 x10e6 /uL 3.77-5 .28 Not Available [facility] ([facility]) [address] [facility], [place], [address], 08/01/2020 06:23:06 08/01/19 21 08/01/2020 CBC w/ auto diff hemoglobin 13.7 g/dL 11.1-1 5.9 Not Available [facility] ([facility]) [address] [place], [address], 08/01/2020 06:23:06 08/01/19 21 08/01/2020 CBC w/ auto diff hematocrit 42.1 % 34.0-4 6.6 Not Available [facility] ([facility]) [address] [place], [address], 08/01/2020 06:23:06 08/01/19 21 08/01/2020 CBC w/ auto diff MCV 91 fL 79-97 Not Available [facility] ([facility]) [address] [place], [address], 08/01/2020 06:23:06 08/01/19 21 08/01/2020 CBC w/ auto diff MCH 29.6 pg 26.6-3 3.0 Not Available [facility] ([facility]) [address] [place], [address], 08/01/2020 06:23:06 08/01/19 21 08/01/2020 CBC w/ auto diff MCHC 32.5 g/dL 31.5-3 5.7 Not Available [facility] ([facility]) [address] [place], [address], 08/01/2020 06:23:06 08/01/19 21 08/01/2020 CBC w/ auto diff RDW 12.7 % 11.7-1 5.4 Not Available [facility] ([facility]) [address] [facility], [place], [address], 08/01/2020 06:23:06 08/01/19 21 08/01/2020 CBC w/ auto diff platelets 264 x10e3 /uL 150-45 0 Not Available [facility] ([facility]) [address] [facility], [place], [address], 08/01/2020 06:23:06 08/01/19 21 08/01/2020 CBC w/ auto diff neutrophils 53 % not estab. Not Available [facility] ([facility]) [address] [facility], [place], [address], 08/01/2020 06:23:06 08/01/19 21 08/01/2020 CBC w/ auto diff lymphs 32 % not estab. Not Available [facility] ([facility]) [address] [facility], [place], [address], 08/01/2020 06:23:06 08/01/19 21 08/01/2020 CBC w/ auto diff monocytes 11 % not estab. Not Available [facility] ([facility]) [address] [facility], [place], [address], 08/01/2020 06:23:06 08/01/19 21 08/01/2020 CBC w/ auto diff eos 3 % not estab. Not Available [facility] ([facility]) [address] [facility], [place], [address], 08/01/2020 06:23:06 08/01/19 21 08/01/2020 CBC w/ auto diff basos 1 % not estab. Not Available [facility] ([facility]) [address] [facility], [place], [address], 08/01/2020 06:23:06 08/01/19 21 08/01/2020 CBC w/ auto diff immature cells fuselage framer Not Available [facility] ([facility]) [address] [facility], [place], [address], 08/01/2020 06:23:06 08/01/19 21 08/01/2020 CBC w/ auto diff neutrophils (absolute) 2.4 x10e3 /uL 1.4-7. 0 Not Available [facility] ([facility]) [address] [facility], [place], [address], 08/01/2020 06:23:06 08/01/19 21 08/01/2020 CBC w/ auto diff lymphs (absolute) 1.5 x10e3 /uL 0.7-3. 1 Not Available [facility] ([facility]) [address] [facility], [place], [address], 08/01/2020 06:23:06 08/01/19 21 08/01/2020 CBC w/ auto diff monocytes(ab solute) 0.5 x10e3 /uL 0.1-0. 9 Not Available [facility] ([facility]) [address] [facility], [place], [address], 08/01/2020 06:23:06 08/01/19 21 08/01/2020 CBC w/ auto diff eos (absolute) 0.1 x10e3 /uL 0.0-0. 4 Not Available [facility] ([facility]) [address] [place], [address], 08/01/2020 06:23:06 08/01/19 21 08/01/2020 CBC w/ auto diff baso (absolute) 0.1 x10e3 /uL 0.0-0. 2 Not Available [facility] ([facility]) [address] [place], [address], 08/01/2020 06:23:06 08/01/19 21 08/01/2020 CBC w/ auto diff immature granulocytes 0 % not estab. Not Available [facility] ([facility]) [address] [place], [address], 08/01/2020 06:23:06 08/01/19 21 08/01/2020 CBC w/ auto diff immature grans (abs) 0.0 x10e3 /uL 0.0-0. 1 Not Available [facility] ([facility]) [address] [facility], [place], [address], 08/01/2020 06:23:06 08/01/19 21 08/01/2020 CBC w/ auto diff NRBC fuselage framer Not Available [facility] ([facility]) [address] [facility], [place], [address], 08/01/2020 06:23:06 08/01/1908/01/2020 CBC w/ auto diff hematology comments: fuselage framer Not Available [facility] ([facility]) [address] [facility], [place], [address], 08/01/2020 06:23:06 08/01/1908/01/2020 TSH + free T4, serum TSH 0.826 uIU/m L 0.450- 4.500 Not Available [facility] ([facility]) [address] [facility], [place], [address], 08/01/2020 06:23:05 08/01/1908/01/2020 TSH + free T4, serum T4,free(dire ct) 1.58 NG/dL 0.82-1 .77 Not Available [facility] ([facility]) [address] [place], [address], 08/01/2020 06:23:05 08/01/1908/01/2020 urina lysis , dipst ick, refle x micro specific gravity 1.017 1.005- 1.030 Not Available [facility] ([facility]) [address] [place], [address], 08/01/2020 06:23:05 08/01/1908/01/2020 urina lysis , dipst ick, refle x micro pH 6.0 5.0-7. 5 Not Available [facility] ([facility]) [address] [place], [address], 08/01/2020 06:23:05 08/01/19 21 08/01/2020 urina lysis , dipst ick, refle x micro urine-color yellow yellow Not Available [facility] ([facility]) [address] [place], [address], 08/01/2020 06:23:05 08/01/19 21 08/01/2020 urina lysis , dipst ick, refle x micro appearance clear clear Not Available [facility] ([facility]) [address] [place], [address], 08/01/2020 06:23:05 08/01/19 21 08/01/2020 urina lysis , dipst ick, refle x micro WBC esterase negati ve negati ve Not Available [facility] ([facility]) [address] [place], [address], 08/01/2020 06:23:05 08/01/19 21 08/01/2020 urina lysis , dipst ick, refle x micro protein negati ve negati ve/tra ce Not Available [facility] ([facility]) [address] [place], [address], 08/01/2020 06:23:05 08/01/19 21 08/01/2020 urina lysis , dipst ick, refle x micro glucose negati ve negati ve Not Available [facility] ([facility]) [address] [place], [address], 08/01/2020 06:23:05 08/01/19 21 08/01/2020 urina lysis , dipst ick, refle x micro ketones negati ve negati ve Not Available [facility] ([facility]) [address] [place], [address], 08/01/2020 06:23:05 08/01/19 21 08/01/2020 urina lysis , dipst ick, refle x micro occult blood negati ve negati ve Not Available [facility] ([facility]) [address] [place], [address], 08/01/2020 06:23:05 08/01/19 21 08/01/2020 urina lysis , dipst ick, refle x micro bilirubin negati ve negati ve Not Available [facility] ([facility]) [address] [facility], [place], [address], 08/01/2020 06:23:05 08/01/19 21 08/01/2020 urina lysis , dipst ick, refle x micro urobilinogen ,semi-qn 0.2 mg/dL 0.2-1. 0 Not Available [facility] ([facility]) [address] [place], [address], 08/01/2020 06:23:05 08/01/19 21 08/01/2020 urina lysis , dipst ick, refle x micro nitrite, urine negati ve negati ve Not Available [facility] ([facility]) [address] [place], [address], 08/01/2020 06:23:05 08/01/19 21 08/01/2020 urina lysis , dipst ick, refle x micro microscopic examination commen t Micro scopi c not indic ated and not perfo rmed. Not Available [facility] ([facility]) [address] [place], [address], 08/01/2020 06:23:05 08/26/19 22 08/26/2021 TRIIO DOTHY NUBIA E (T3), FREE triiodothyro nine (T3), free 3.2 pg/mL 2.0-4. 4 Not Available [facility] ([facility]) [address] [place], [address], 08/26/2021 05:09:39 08/26/19 22 08/26/2021 HEMOG LOBIN A1C hemoglobin A1C 6.0 % 4.8-5. 6 above high normal Predi abete s: 5.7 - 6.4 Diabe derrick: >6.4 Glyce jesi contr ol for adult s with diabe derrick: <7.0 Not Available [facility] ([facility]) [address] [place], [address], 08/26/2021 05:09:38 08/26/19 22 08/26/2021 LIPID PANEL W/ CHOL/ HDL RATIO cholesterol, total 190 mg/dL 100-19 9 Not Available [facility] ([facility]) [address] [place], [address], 08/26/2021 05:09:38 08/26/19 22 08/26/2021 LIPID PANEL W/ CHOL/ HDL RATIO triglyceride s 93 mg/dL 0-149 Not Available [facility] ([facility]) [address] [place], [address], 08/26/2021 05:09:38 08/26/19 22 08/26/2021 LIPID PANEL W/ CHOL/ HDL RATIO HDL cholesterol 73 mg/dL >39 Not Available [facility] ([facility]) [address] [place], [address], 08/26/2021 05:09:38 08/26/19 22 08/26/2021 LIPID PANEL W/ CHOL/ HDL RATIO VLDL cholesterol sneha 17 mg/dL 5-40 Not Available [facility] ([facility]) [address] [place], [address], 08/26/2021 05:09:38 08/26/19 22 08/26/2021 LIPID PANEL W/ CHOL/ HDL RATIO LDL chol calc ([facility]) 100 mg/dL 0-99 above high normal Not Available [facility] ([facility]) [address] [place], [address], 08/26/2021 05:09:38 08/26/19 22 08/26/2021 LIPID PANEL W/ CHOL/ HDL RATIO comment: fuselage framer Not Available [facility] ([facility]) [address] [facility], [place], [address], 08/26/2021 05:09:38 08/26/19 22 08/26/2021 LIPID PANEL W/ CHOL/ HDL RATIO T. chol/HDL ratio 2.6 ratio 0.0-4. 4 T. Chol/ HDL Ratio Men Women 1/2 Avg.R isk 3.4 3.3 Avg.R isk 5.0 4.4 2X Avg.R isk 9.6 7.1 3X Avg.R isk 23.4 11.0 Not Available [facility] ([facility]) [address] [place], [address], 08/26/2021 05:09:38 08/26/19 22 08/26/2021 CBC WITH DIFFE RENTI AL/PL ATELE T WBC 6.0 x10e3 /uL 3.4-10 .8 Not Available [facility] ([facility]) [address] [place], [address], 08/26/2021 05:09:37 08/26/19 22 08/26/2021 CBC WITH DIFFE RENTI AL/PL ATELE T RBC 4.87 x10e6 /uL 3.77-5 .28 Not Available [facility] ([facility]) [address] [place], [address], 08/26/2021 05:09:37 08/26/19 22 08/26/2021 CBC WITH DIFFE RENTI AL/PL ATELE T hemoglobin 14.3 g/dL 11.1-1 5.9 Not Available [facility] ([facility]) [address] [place], [address], 08/26/2021 05:09:37 08/26/19 22 08/26/2021 CBC WITH DIFFE RENTI AL/PL ATELE T hematocrit 43.8 % 34.0-4 6.6 Not Available [facility] ([facility]) [address] [facility], [place], [address], 08/26/2021 05:09:37 08/26/19 22 08/26/2021 CBC WITH DIFFE RENTI AL/PL ATELE T MCV 90 fL 79-97 Not Available [facility] ([facility]) [address] [facility], [place], [address], 08/26/2021 05:09:37 08/26/19 22 08/26/2021 CBC WITH DIFFE RENTI AL/PL ATELE T MCH 29.4 pg 26.6-3 3.0 Not Available [facility] ([facility]) [address] [facility], [place], [address], 08/26/2021 05:09:37 08/26/19 22 08/26/2021 CBC WITH DIFFE RENTI AL/PL ATELE T MCHC 32.6 g/dL 31.5-3 5.7 Not Available [facility] ([facility]) [address] [place], [address], 08/26/2021 05:09:37 08/26/19 22 08/26/2021 CBC WITH DIFFE RENTI AL/PL ATELE T RDW 12.4 % 11.7-1 5.4 Not Available [facility] ([facility]) [address] [place], [address], 08/26/2021 05:09:37 08/26/19 22 08/26/2021 CBC WITH DIFFE RENTI AL/PL ATELE T platelets 295 x10e3 /uL 150-45 0 Not Available [facility] ([facility]) [address] [place], [address], 08/26/2021 05:09:37 08/26/19 22 08/26/2021 CBC WITH DIFFE RENTI AL/PL ATELE T neutrophils 56 % not estab. Not Available [facility] ([facility]) [address] [facility], [place], [address], 08/26/2021 05:09:37 08/26/19 22 08/26/2021 CBC WITH DIFFE RENTI AL/PL ATELE T lymphs 29 % not estab. Not Available [facility] ([facility]) [address] [facility], [place], [address], 08/26/2021 05:09:37 08/26/19 22 08/26/2021 CBC WITH DIFFE RENTI AL/PL ATELE T monocytes 12 % not estab. Not Available [facility] ([facility]) [address] [facility], [place], [address], 08/26/2021 05:09:37 08/26/19 22 08/26/2021 CBC WITH DIFFE RENTI AL/PL ATELE T eos 2 % not estab. Not Available [facility] ([facility]) [address] [facility], [place], [address], 08/26/2021 05:09:37 08/26/19 22 08/26/2021 CBC WITH DIFFE RENTI AL/PL ATELE T basos 1 % not estab. Not Available [facility] ([facility]) [address] [facility], [place], [address], 08/26/2021 05:09:37 08/26/19 22 08/26/2021 CBC WITH DIFFE RENTI AL/PL ATELE T immature cells fuselage framer Not Available [facility] ([facility]) [address] [facility], [place], [address], 08/26/2021 05:09:37 08/26/19 22 08/26/2021 CBC WITH DIFFE RENTI AL/PL ATELE T neutrophils (absolute) 3.4 x10e3 /uL 1.4-7. 0 Not Available [facility] ([facility]) [address] [facility], [place], [address], 08/26/2021 05:09:37 08/26/19 22 08/26/2021 CBC WITH DIFFE RENTI AL/PL ATELE T lymphs (absolute) 1.7 x10e3 /uL 0.7-3. 1 Not Available [facility] ([facility]) [address] [facility], [place], [address], 08/26/2021 05:09:37 08/26/19 22 08/26/2021 CBC WITH DIFFE RENTI AL/PL ATELE T monocytes(ab solute) 0.7 x10e3 /uL 0.1-0. 9 Not Available [facility] ([facility]) [address] [place], [address], 08/26/2021 05:09:37 08/26/19 22 08/26/2021 CBC WITH DIFFE RENTI AL/PL ATELE T eos (absolute) 0.1 x10e3 /uL 0.0-0. 4 Not Available [facility] ([facility]) [address] [facility], [place], [address], 08/26/2021 05:09:37 08/26/19 22 08/26/2021 CBC WITH DIFFE RENTI AL/PL ATELE T baso (absolute) 0.1 x10e3 /uL 0.0-0. 2 Not Available [facility] ([facility]) [address] [place], [address], 08/26/2021 05:09:37 08/26/19 22 08/26/2021 CBC WITH DIFFE RENTI AL/PL ATELE T immature granulocytes 0 % not estab. Not Available [facility] ([facility]) [address] [place], [address], 08/26/2021 05:09:37 08/26/19 22 08/26/2021 CBC WITH DIFFE RENTI AL/PL ATELE T immature grans (abs) 0.0 x10e3 /uL 0.0-0. 1 Not Available [facility] ([facility]) [address] [facility], [place], [address], 08/26/2021 05:09:37 08/26/19 22 08/26/2021 CBC WITH DIFFE RENTI AL/PL ATELE T NRBC fuselage framer Not Available [facility] ([facility]) [address] [facility], [place], [address], 08/26/2021 05:09:37 08/26/19 22 08/26/2021 CBC WITH DIFFE RENTI AL/PL ATELE T hematology comments: fuselage framer Not Available [facility] ([facility]) [address] [facility], [place], [address], 08/26/2021 05:09:37 08/26/19 22 08/26/2021 TSH+F REE T4 TSH 0.978 uIU/m L 0.450- 4.500 Not Available [facility] ([facility]) [address] [place], [address], 08/26/2021 05:09:37 08/26/19 22 08/26/2021 TSH+F REE T4 T4,free(dire ct) 1.39 NG/dL 0.82-1 .77 Not Available [facility] ([facility]) [address] [place], [address], 08/26/2021 05:09:37 08/26/19 22 08/26/2021 URINA LYSIS , ROUTI NE W/RFX specific gravity 1.024 1.005- 1.030 Not Available [facility] ([facility]) [address] [place], [address], 08/26/2021 05:09:37 08/26/19 22 08/26/2021 URINA LYSIS , ROUTI NE W/RFX pH 6.0 5.0-7. 5 Not Available [facility] ([facility]) [address] [place], [address], 08/26/2021 05:09:37 08/26/19 22 08/26/2021 URINA LYSIS , ROUTI NE W/RFX urine-color yellow yellow Not Available [facility] ([facility]) [address] [facility], [place], [address], 08/26/2021 05:09:37 08/26/19 22 08/26/2021 URINA LYSIS , ROUTI NE W/RFX appearance clear clear Not Available [facility] ([facility]) [address] [place], [address], 08/26/2021 05:09:37 08/26/19 22 08/26/2021 URINA LYSIS , ROUTI NE W/RFX WBC esterase negati ve negati ve Not Available [facility] ([facility]) [address] [place], [address], 08/26/2021 05:09:37 08/26/19 22 08/26/2021 URINA LYSIS , ROUTI NE W/RFX protein trace negati ve/tra ce Not Available [facility] ([facility]) [address] [place], [address], 08/26/2021 05:09:37 08/26/19 22 08/26/2021 URINA LYSIS , ROUTI NE W/RFX glucose negati ve negati ve Not Available [facility] ([facility]) [address] [place], [address], 08/26/2021 05:09:37 08/26/19 22 08/26/2021 URINA LYSIS , ROUTI NE W/RFX ketones trace negati ve abnormal Not Available [facility] ([facility]) [address] [place], [address], 08/26/2021 05:09:37 08/26/19 22 08/26/2021 URINA LYSIS , ROUTI NE W/RFX occult blood negati ve negati ve Not Available [facility] ([facility]) [address] [place], [address], 08/26/2021 05:09:37 08/26/19 22 08/26/2021 URINA LYSIS , ROUTI NE W/RFX bilirubin negati ve negati ve Not Available [facility] ([facility]) [address] [place], [address], 08/26/2021 05:09:37 08/26/19 22 08/26/2021 URINA LYSIS , ROUTI NE W/RFX urobilinogen ,semi-qn 0.2 mg/dL 0.2-1. 0 Not Available [facility] ([facility]) [address] [place], [address], 08/26/2021 05:09:37 08/26/19 22 08/26/2021 URINA LYSIS , ROUTI NE W/RFX nitrite, urine negati ve negati ve Not Available [facility] ([facility]) [address] [place], [address], 08/26/2021 05:09:37 08/26/19 22 08/26/2021 URINA LYSIS , ROUTI NE W/RFX microscopic examination commen t Micro scopi c not indic ated and not perfo rmed. Not Available [facility] ([facility]) [address] [place], [address], 08/26/2021 05:09:37 08/26/19 22 08/26/2021 CMP14 +EGFR glucose 99 mg/dL 65-99 Not Available [facility] ([facility]) [address] [place], [address], 08/26/2021 05:09:36 08/26/19 08/26/2021 CMP14 +EGFR BUN 15 mg/dL 6-24 Not Available [facility] ([facility]) [address] [place], [address], 08/26/2021 05:09:36 08/26/19 22 08/26/2021 CMP14 +EGFR creatinine 0.78 mg/dL 0.57-1 .00 Not Available [facility] ([facility]) [address] [place], [address], 08/26/2021 05:09:36 08/26/19 22 08/26/2021 CMP14 +EGFR eGFR 89 mL/mi n/1.7 3 >59 Not Available [facility] ([facility]) [address] [facility] [place], [address], 08/26/2021 05:09:36 08/26/19 22 08/26/2021 CMP14 +EGFR BUN/creatini ne ratio 19 9-23 Not Available [facility] ([facility]) [address] [place], [address], 08/26/2021 05:09:36 08/26/19 22 08/26/2021 CMP14 +EGFR sodium 137 mmol/ L 134-14 4 Not Available [facility] ([facility]) [address] [place], [address], 08/26/2021 05:09:36 08/26/19 22 08/26/2021 CMP14 +EGFR potassium 4.7 mmol/ L 3.5-5. 2 Not Available [facility] ([facility]) [address] [place], [address], 08/26/2021 05:09:36 08/26/19 22 08/26/2021 CMP14 +EGFR chloride 99 mmol/ L 96-106 Not Available [facility] ([facility]) [address] [place], [address], 08/26/2021 05:09:36 08/26/19 22 08/26/2021 CMP14 +EGFR carbon dioxide, total 24 mmol/ L 20- Not Available [facility] ([facility]) [address] [place], [address], 08/26/2021 05:09:36 08/26/19 22 08/26/2021 CMP14 +EGFR calcium 10.0 mg/dL 8.7-10 .2 Not Available [facility] ([facility]) [address] [place], [address], 08/26/2021 05:09:36 08/26/19 22 08/26/2021 CMP14 +EGFR protein, total 7.0 g/dL 6.0-8. 5 Not Available [facility] ([facility]) [address] [place], [address], 08/26/2021 05:09:36 08/26/19 22 08/26/2021 CMP14 +EGFR albumin 4.7 g/dL 3.8-4. 9 Not Available [facility] ([facility]) [address] [place], [address], 08/26/2021 05:09:36 08/26/19 22 08/26/2021 CMP14 +EGFR globulin, total 2.3 g/dL 1.5-4. 5 Not Available [facility] ([facility]) [address] [place], [address], 08/26/2021 05:09:36 08/26/19 22 08/26/2021 CMP14 +EGFR A/G ratio 2.0 1.2-2. 2 Not Available [facility] ([facility]) [address] [place], [address], 08/26/2021 05:09:36 08/26/19 22 08/26/2021 CMP14 +EGFR bilirubin, total 0.7 mg/dL 0.0-1. 2 Not Available [facility] ([facility]) [address] [facility], [place], [address], 08/26/2021 05:09:36 08/26/19 22 08/26/2021 CMP14 +EGFR alkaline phosphatase 82 IU/L 44-121 Not Available [facility]) [address] [facility], [place], [address], 08/26/2021 05:09:36 08/26/19 22 08/26/2021 CMP14 +EGFR AST (SGOT) 29 IU/L 0-40 Not Available [facility] ([facility]) [address] [facility], [place], [address], 08/26/2021 05:09:36 08/26/19 22 08/26/2021 CMP14 +EGFR ALT (SGPT) 22 IU/L 0-32 Not Available [facility] ([facility]) [address] [facility], [place], [address], 08/26/2021 05:09:36 03/16/20 22 03/16/2022 rapid flu (A+B) Flu A negati ve Not Available [facility] [address], [place], [address], 03/16/2022 10:02:36 03/16/20 22 03/16/2022 rapid flu (A+B) Flu B negati ve Not Available [facility] [place] [address], [place], [address], 03/16/2022 10:02:36 06/04/19 22 05/19/2021 MAMMO , scree drerell, digit al, bilat eral No observ ation record ed. [id number] Not Available 05/26/2022 18:21:37 07/18/19 22 07/15/2021 cardi ac stres s test No observ ation record ed. [id number] [facility] [address], [place], [address], 05/26/2022 18:21:37 06/04/19 23 06/02/2022 MAMMO , scree derrell, digit al, bilat eral No observ ation record ed. [email or web address] Not Available 2022 11:35:30 Result Notes None recorded. Problems Name Problem SNOMED Code Status Onset Date Resolution Date Notes Provider Name and Address Organization Details Recorded Time Suprapubic pain 416060310 Active Not Available [facility] 3 18:21:01 Impacted cerumen 69131420 Active Not Available [facility] 3 18:21:01 Sore throat 107643623 Active 2021 Not Available [facility] 3 18:21:01 Lower urinary tract symptoms 038151649 Active 2021 Not Available [facility] 3 18:21:01 Hypothyroidis m 46394449 Active 2021 Not Available [facility] 3 18:21:01 Viral syndrome 124402293 Active 2021 Not Available [facility] 3 18:21:02 Cough 60617985 Active Not Available [facility] 3 18:21:02 Acute laryngitis 1310336 Active Not Available [facility] 3 18:21:02 Acute urinary tract infection 773583801 Active 2022 ANALY Napoles, [facility] [employer] [facility] 3 10:17:09 Herpes labialis 7465170 Active 2022 MARTINEZ Sow [address] [facility] [address], [place], [address] , [employer] 3 10:32:02 Insomnia 248875162 Active 2022 MARTINEZ Sow [address], [facility] [address], [place], [address] , [employer] 3 10:58:57 Problem Notes None recorded. Procedures Surgical History Date Name Laterality Status Provider Name and Address Organization Details Recorded Time 04/30/19 Date of Last Colonoscopy completed Not Available [facility] 05/26/2022 18:20:17 completed Not Available [facility] 0 05/26/2022 18:20:17 Breast Implants completed Not Available [facility] 05/26/2022 18:20:17 [facility]ste[facility]/26[facility] 18:20:17 Imaging Results None recorded. Procedure Notes None recorded. Medical Equipment None Reported. Allergies Allergen ID Allergen Name Allergen Category Reaction Reaction Severity Criticality Documentation Date Start Date Code Code System Note Provider Name and Address Organization Details Recorded Time 84163 latex environme nt,medica tion rash Not available Not available 05/26/2022 31530 91 RxNorm Not Available [facility] 18:21:36 96960 Bactrim medicatio n rash Not available Not available 05/26/2022 42525 9 RxNorm Not Available [facility] 18:21:36 32396 adhesive tape environme nt,medica tion rash Not available Not available 05/26/2022 26894 UNK Not Available [facility] 18:21:36 Medications Name Sig Start Date Stop Date Status Note LastModified by Organization Details LastModified Time doxycycli ne hyclate 100 mg capsule Take 1 capsule twice a day by oral route with meals. active Not Available Not Available No t Available clindamyc in HCl 300 mg capsule 01/03 completed Not Available Not Available Not Available hydrocodo ne 5 mg-acetam inophen 325 mg tablet 01/03 completed Not Available Not Available Not Available Zithromax Z-Matti 250 mg tablet TAKE 2 TABLETS (500 MG) BY ORAL ROUTE ONCE DAILY FOR 1 DAY THEN 1 TABLET (250 MG) BY ORAL ROUTE ONCE DAILY FOR 4 DAYS 09/06 completed Not Available Not Available Not Available valacyclo vir 500 mg tablet TAKE 1 TABLET BY MOUTH EVERY 12 HOURS NEEDED active Not Available Not Available No t Available ciproflox acin 500 mg tablet TAKE 1 TABLET BY MOUTH EVERY 12 HOURS 07/16 completed Not Available Not Available Not Available meloxicam 7.5 mg tablet 07/23 completed Not Available Not Available Not Available amoxicill in 875 mg tablet Take 1 tablet every 12 hours by oral route. active Not Available Not Available No t Available lorazepam 0.5 mg tablet TK 1 TO 2 TS PO QHS active Not Available Not Available No t Available thyroid 30 mg capsule Take 1 capsule every day by oral route. 07/23 completed Not Available Not Available Not Available Niall-Tab 250 mg tablet,de layed release active Not Available Not Available Not Available Synthroid 75 mcg tablet TAKE 1 TABLET BY MOUTH EVERY DAY IN THE MORNING active Not Available Not Available No t Available hydrocort isone 2.5 % topical cream APPLY TO THE AFFECTED AREA ON EYELIDS AND LIPS TWICE DAILY NEEDED 07/21 completed Not Available Not Available Not Available zolpidem 10 mg tablet TAKE 1 TABLET BY MOUTH EVERY DAY AT BEDTIME active Not Available Not Available No t Available doxycycli ne hyclate 20 mg tablet TAKE 2 TABLETS BY MOUTH DAILY ON AN EMPTY STOMACH 07/21 completed Not Available Not Available Not Available Premarin 0.45 mg tablet TAKE 1 TABLET BY MOUTH DAILY CYCLICAL LY active Not Available Not Available No t Available testoster one 20mg/mL 07/23 completed topical cream three clicks everyday Not Available Not Available Not Available DHEA 15mg capsule 07/23 completed take 1 capsule by mouth every other day Not Available Not Available Not Available Virtussin AC 10 mg-100 mg/5 mL oral liquid take 1-2 tsp po q4-6 hours for cough 04/07 completed Not Available Not Available Not Available Fluvirin 45 mcg (15 mcg x 3)/0.5 mL intramusc ular suspensio n ADM 0.5ML IM UTD active Not Available Not Available No t Available Fluvirin 8310-9937 45 mcg (15 mcg x 3)/0.5 mL intramusc ular suspensio n active Not Available Not Available Not Available Fluvirin 3596-7115 (PF) 45 mcg(15 mcg x3)/0.5 mL intramusc ular syringe active Not Available Not Available Not Available Afluria Quad (PF) 60 mcg (15 mcg x 4)/0.5 mL IM syringe ADM 0.5ML IM UTD 04/11 completed Not Available Not Available Not Available estradiol -progeste alisha 200 mg/ml 07/23 completed topical cream three clicks at night Not Available Not Available Not Available Afluria Qd 2019-20 (36 mos up)(PF)60 mcg (15 mcg x4)/0.5 mL IM syringe ADM 0.5ML IM UTD 07/22 completed Not Available Not Available Not Available [employer] COVID-19 Ag Self Test kit TEST DIRECTED TODAY 09/13 completed Not Available Not Available Not Available Vitals Date Recorded Body mass index (BMI) Body height Oxygen saturation Oxygen saturation in Arterial blood by Pulse oximetry Heart rate Body temperature Body weight Systolic blood pressure Diastolic blood pressure Provider Name and Address Organization Details Last Updated DateTime 1 21 kg/m2 170.18 cm 97 % 97 % 80 /min 97.7 [degF] 41724.3 8 g 110 mm[Hg] 60 mm[Hg] Not Available [facility] 3 18:20:49 Date Recorded Body mass index (BMI) Body height Oxygen saturation Oxygen saturation in Arterial blood by Pulse oximetry Heart rate Respiratory rate Body temperature Body weight Systolic blood pressure Diastolic blood pressure Provider Name and Address Organization Details Last Updated DateTime 2 21.5 kg/m2 170.18 cm 99 % 99 % 58 /min 16 /min 97.2 [degF] 63449.1 5 g 112 mm[Hg] 68 mm[Hg] Not Available [facility] 3 18:20:49 Date Recorded Body height Body mass index (BMI) Body weight Body temperature Heart rate Oxygen saturation Oxygen saturation in Arterial blood by Pulse oximetry Systolic blood pressure Diastolic blood pressure Provider Name and Address Organization Details Last Updated DateTime 3 170.18 cm 21.3 kg/m2 01268.5 6 g 98.4 [degF] 67 /min 97 % 97 % 112 mm[Hg] 68 mm[Hg] Lisa Adamson RN [place] [employer] [facility] 3 17:18:39 Date Recorded Body mass index (BMI) Body height Oxygen saturation Oxygen saturation in Arterial blood by Pulse oximetry Heart rate Body temperature Body weight Systolic blood pressure Diastolic blood pressure Provider Name and Address Organization Details Last Updated DateTime 1 21.8 kg/m2 170.18 cm 99 % 99 % 60 /min 97.3 [degF] 88459.3 4 g 110 mm[Hg] 60 mm[Hg] Not Available [facility] 3 18:20:49 Date Recorded Body mass index (BMI) Body height Oxygen saturation Oxygen saturation in Arterial blood by Pulse oximetry Heart rate Body temperature Body weight Systolic blood pressure Diastolic blood pressure Provider Name and Address Organization Details Last Updated DateTime 2 21.9 kg/m2 170.18 cm 97 % 97 % 79 /min 96.5 [degF] 22440.9 3 g 110 mm[Hg] 68 mm[Hg] Not Available [facility] 3 18:20:49 Social History Question Answer Notes LastModified by [employer] ion Details LastModified Time Tobacco Smoking Status Former Smoker 2009 Not Available [facility] 05/26/2022 18:20:14 Do You Have An Advance Directive? No [id number] Information not available 05/26/2022 What Is Your Level Of Caffeine Consumption? Moderate [id number] Information not available 05/26/2022 How Much Tobacco Do You Chew? None MIGRATION.[id number] Information not available 05/26/2022 In The 14 Days Before Symptom Onset, Have You Had Close Contact With A Laboratory-confirm ed COVID-19 While That Case Was Ill? No [id number] Information not available 05/26/2022 In The 14 Days Before Symptom Onset, Have You Had Close Contact With A Person Who Is Under Investigation For COVID-19 While That Person Was Ill? No [id number] Information not available 05/26/2022 What Type Of Diet Are You Following? REGULAR [id number] Information not available 05/26/2022 Which Illicit Or Recreational Drugs Have You Used? None [id number].[id number] Information not available 05/26/2022 Have There Been Any Changes To Your Family Or Social Situation? No [id number] Information not available 05/26/2022 Do You Use Insect Repellent Routinely? No [id number] Information not available 05/26/2022 Do You Have A Medical Power Of Public Health Teacher? No [id number].[id number] 1660 Information not available 05/26/2022 What Is Your Relationship Status? [id number] [id number] Information not available 05/26/2022 Do You Use Your Seat Belt Or Car Seat Routinely? Yes [id number] Information not available 05/26/2022 Do You Have Smoke And Carbon Monoxide Detectors In Your Home? Yes MIGRATION.[id number] 0926 Information not available 05/26/2022 At What Age Did You Start Smoking Tobacco? 14 MIGRATION.[id number] 6751 Information not available 05/26/2022 How Much Tobacco Do You Smoke? 1 PPW MIGRATION.[id number] 1128 Information not available 05/26/2022 Do You Use Sunscreen Routinely? Yes MIGRATION.[id number] Information not available 05/26/2022 Have You Recently Traveled Abroad? No MIGRATION.[id number] 5361 Information not available 05/26/2022 Do You Have Any Dietary Restrictions? No MIGRATION.[id number] 8197 Information not available 05/26/2022 Sex: Unknown Functional Status Question Answer Note LastModified by [employer] Details LastModified Time Do you use any illicit or recreational drugs? No [id number].[id number] Information not available 05/26/2022 Do you or have you ever used any other forms of tobacco or nicotine? No MIGRATION.[id number] 3432 Information not available 05/26/2022 What is your level of alcohol consumption? Occasional MIGRATION.[id number] Information not available 05/26/2022 Do you or have you ever used smokeless tobacco? Never used smokeless tobacco MIGRATION.[id number] 1223 Information not available 05/26/2022 Do you or have you ever used e-cigarettes or vape? Never used electronic cigarettes MIGRATION.[id number] 0267 Information not available 05/26/2022 What is your exercise level? Occasional MIGRATION.[id number] 6639 Information not available 05/26/2022 Mental Status None recorded. Family History Relationship Description Onset Age of this Age Resolved Age Notes LastModified by Organization Details LastModified Time Mother Malignant tumor of breast [id number] Not available 05/26/2022 18:20:18 Mother Chronic obstructive pulmonary disease [id number] Not available 05/26/2022 18:20:18 Mother Malignant neoplasm of lung [id number] [id number] Not available 05/26/2022 18:20:18 Sister Malignant tumor of breast 2 sister s with brest cancer [id number] Not available 05/26/2022 18:20:18 Sister Malignant neoplasm of brain [id number] Not available 05/26/2022 18:20:18 Father Diabetes mellitus 69 [id number] Not available 05/26/2022 18:20:18 Medical History Condition Response EYE PROBLEMS Y Gynecological History Statement/Question Response Date of Last Pap 02/25/2015 Date of Last Mammogram 03/17/2020 Current Control Method Hysterectom y Date of Last Colonoscopy 04/30/2016 Sexually Active? Y Obstetrics History GPAL:G 2 P 0 0 0 2 Type Value Living 2 Total 2 Immunizations Vaccine Type Date Status Note Provider Nam e and Address Organization Details Recorded Time Influenza, split virus, quadrivalent, preservative 8 completed Not Available [facility] 05/26/2022 18:21:35 Influenza, split virus, quadrivalent, preservative 7 completed Not Available [facility] 05/26/2022 18:21:35 influenza, unspecified formulation 9 completed Not Available [facility] 05/26/2022 18:21:35 influenza, unspecified formulation 6 completed Not Available [facility] 05/26/2022 18:21:35 influenza, unspecified formulation 5 completed Not Available [facility] 05/26/2022 18:21:35 Past Encounters Encounter ID Performer Location Encounter Start Date Encounter Closed Date Diagnosis/Indication Diagnosis SNOMED-CT Code Diagnosis ICD10 Code Diagnosis Note [id number] MARTINEZ oSw [facility] [place] [address] [place] [address] 07/21/2020 00:00:00 07/22/2020 23:24:34 [id number] MARTINEZ Sow [facility] [place] [address] [place] [address] 10/15/2020 00:00:00 10/25/2020 08:38:06 [id number] Willie Bentley MD [facility] [place] [address] [place] [address] 08/12/2021 00:00:00 08/24/2021 21:44:04 [id number] MARTINEZ Sow [facility] [place] [address] [place] [address] 03/16/2022 00:00:00 03/24/2022 13:11:52 [id number] MARTINEZ Sow [facility] [place] [address] [place] [address] 09/13/2022 17:13:14 09/13/2022 17:37:38 Adult health examination 120492917 Z00.00 annual wellness completed Hypothyroidism 77124429 E03.9 stable on supplement and due for TFTs Diabetes m ellitus screening 506135242 Z13.1 screening diabetes due Cholesterol screening 27 0267306 Z13.220 fasting lipids due Long-term drug therapy 585739825 Z79.899 CBC and CMP due Postmenopausal state 764 01591 Z78.0 dexa scan is due Health Concerns Section Related Observation LastModified by Organization Detai ls LastModified Time None Recorded Concern Status LastModified by Organization Details LastModified Time None Recorded Advance Directives Directive N: Payers Encounter Date Sequence Insurance Name Policy Number Policy Santos Covered Member ID Santos Member ID Guarantor Name 09/13/2022 1 [facility] ([facility] [id number] Lexii James Lizabeth [id number] Lexii Kya Lizabeth Notes Date Note Type Note Provider Name and Address Organization Details Recorded Time 1 text/html HypothyroidReported bypatient.Associated Symptoms:no weakness; no lightheadedness; no fatigue; no cold intolerance; no constipation; no weight gain; no involuntary weight loss; normal mood; no menstrual irregularity; no pain; no dry/coarse skin; no edema; no deepening of the voice; no hoarseness; no goiter; no mass detected; no chest pain; no palpitations Treatment:taking medication as directedNotes: Not Available [facility] [employer] [facility] 07/22/2020 23:24:34 1 text/html General Rash/Skin LesionReported bypatient.Location:abdomen ; back; arm; legs Quality:itchy;dry;multiple ; Had some clear discharge come out Severity:mild; improving Duration:has noted for <1 week Onset/Timing:abrupt onset Context:no new detergents or skin products;others with similar symptoms; Friend has shingles Associated Symptoms:no fever; no cold symptoms; no nausea; no vomiting; no diarrhea; no urinary symptoms Not Available [employer] 10/25/2020 08:38:06 2 text/html HypothyroidismReported bypatient.Quality:not changing Severity:moderate Onset/Timing:better Context/Risk:normal thyroid levels; no history of head or neck radiation during childhood; no history of thyroid disease; no history of hypothyroidism; no history of hyperthyroidism; no excess iron exposure Exercisegets exercise Associated Symptoms:no cold intolerance; no heat intolerance; no weight loss; no weight gain; no double vision; no dry eyes; no hoarseness; no difficulty swallowing; no neck masses; no deepening of the voice; no fast heart rate; no increased blood pressure; no palpitations; no chest pain; no chest tightess or pressure; no constipation; no diarrhea; no vomiting; no decreased appetite; no loose stools; no irregular menstrual periods; no excessive sweating; no joint pain; no numbness; no tingling of the hands or feet; no dry skin; no tremor; no nervousness; no anxiety; no depression; no fatigue; no sleep difficulties; no skin changes; no hair changes Not Available [employer] 08/24/2021 21:44:04 2 text/html Sore ThroatReported bypatient.Location:middle Duration:started 2 day(s) ago Quality:no difficulty swallowing;hoarseness;sore Severity:same Context:no tick/insect bites; no new medications; no one else with similar symptoms;recent travel Alleviating factors:warm tea; NSAIDS Aggravating factors:talking Associated Symptoms:no fever;cough;throat hoarseness Not Available [employer] 03/24/2022 13:11:52 3 text/html HypothyroidismReported bypatient.Onset/Timing:bet ter Context/Risk:normal thyroid levels; no history of head or neck radiation during childhood; no history of thyroid disease; no history of hypothyroidism; no history of hyperthyroidism; no excess iron exposure;history of hypothyroidism;female gender Exercisegets exercise Associated Symptoms:no cold intolerance; no heat intolerance; no weight loss; no weight gain; no double vision; no dry eyes; no hoarseness; no difficulty swallowing; no neck masses; no deepening of the voice; no fast heart rate; no increased blood pressure; no palpitations; no chest pain; no chest tightess or pressure; no constipation; no diarrhea; no vomiting; no decreased appetite; no loose stools; no irregular menstrual periods; no excessive sweating; no joint pain; no numbness; no tingling of the hands or feet; no dry skin; no tremor; no nervousness; no anxiety; no depression; no fatigue; no sleep difficulties; no skin changes; no hair changes MARTINEZ Sow [address] [facility], [facility] [address], [place], [address], [place] [facility] 09/23/2022 23:45:43 OBGyn Episode No OBEpisode recorded.
--- OUTSIDE RECORDS SUMMARY | 2024-09-04 13:11 | XMS_ITS | Clinical Summary ---
Author Organization [address] Address [facility] [place] [address] Care Team Providers Care Food Specialist Name Role Phone Antoinette Cloud Primary Care Pr ovider Allergies Active Allergy Reactions Criticality Noted Date Comments Adhesive Tape-Silicones Rash Medium 05/10/2024 Latex Rash Medium 04/26/2024 Meropenem Itching Low 05/10/2024 Sulfamethoxazole-Trimethoprim Rash,Unknown Medium 06/27 Medications levothyroxine (SYNTHROID) 50 mcg tabletIndications: hypothyroidism Take 1 tablet (50 mcg total) by mouth plant mechanic before breakfast Active zolpidem (AMBIEN) 10 mg tabletIndications: Sleep-Onset Insomnia Take 1 tablet (10 mg total) by mouth nightly Active valACYclovir (VALTREX) 500 mg tabletIndications: Skin/Soft Tissue Infection,HSV Take 2 tablets (1,000 mg total) by mouth every 12 (twelve) hours as needed Active cholecalciferol 400 unit capsuleIndications :health Take 1 tablet/capsul e (400 Units total) by mouth plant mechanic before breakfast Active multivitamin tabletIndications: Vitamin Deficiency Prevention Take 1 tablet by mouth plant mechanic before breakfast Active ascorbic acid (ascorbic acid with sathish hips) 500 mg tablet,chewableInd ications:health Take 1 tablet/chew tab (500 mg total) by mouth plant mechanic before breakfast Active zinc gluconate 100 mg tabletIndications: health Take 1 capsule by mouth plant mechanic before breakfast Active biotin 1 mg capsuleIndications :health Take 1 capsule by mouth plant mechanic before breakfast Active testosterone 50 mg/5 gram (1 %)Indications:HRT Place 1 each on the skin plant mechanic before breakfast Active acetaminophen (TYLENOL) 500 mg tablet Take 2 tablets (1,000 mg total) by mouth every 6 (six) hours 60 tablet 5 Active ibuprofen (ADVIL,MOTRIN) 600 mg tablet Take 1 tablet (600 mg total) by mouth every 6 (six) hours as needed for pain 60 tablet 5 Active cyclobenzaprine (FLEXERIL) 5 mg tablet Take 1 tablet (5 mg total) by mouth 3 (three) times a day as needed for muscle spasms 30 tablet 5 Active oxyCODONE (ROXICODONE) 5 mg immediate release tabletIndications: Pain Take 1 tablet (5 mg total) by mouth every 4 (four) hours as needed for pain 5 tablet 5 Active ondansetron ODT (ZOFRAN-ODT) 4 mg disintegrating tablet Take 1 tablet (4 mg total) by mouth every 8 (eight) hours as needed for nausea or vomiting 20 tablet 5 Active docusate sodium (DOK) 100 mg tabletIndications: constipation Take 1 tablet (100 mg total) by mouth 2 (two) times a day for 10 days 5 tablet 5 Active podofilox (CONDYLOX) 0.5 % external solution Apply topically 2 (two) times a day 5 Active Active Problems Problem Noted Date Diagnosed Date Tongue lesion 07/17/2024 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, upper limb, including shoulder 05/09/2024 Other chest pain 07/23/2021 Encounters Date Type Department Care Team Description 07/17/2024 12:20 PM CDT Office Visit [facility] Department of Otolaryngology Head-Neck Division [address] [address] Hsusain Wei MD Tongue lesion (Primary Dx) 07/12/2024 1:03 PM CDT - 07/12/2024 11:59 PM CDT Hospital Encounter [facility] ([facility]) [address] [place] [address] Screening mammogram, encounter for Discharge Disposition: Discharge to home or self care 07/12/2024 11:45 AM CDT Office Visit [facility] Surgery [address] [facility] 6th [place] [address] [place] [address] Latasha Valencia MD Benign neoplasm of peripheral nerves and autonomic nervous system, upper limb, including shoulder (Primary Dx) 07/03/2024 [facility] [place] [facility] E[facility] [address] [facility] 11th [place] [address] [place] [address] Maren Stanton, 06/12/2024 8:40 AM CDT Therapy [facility] Occupational Therapy [address] [place] [address] 6th [place] [address] [place] [address] Karen Powell OT Benign neoplasm of peripheral nerves and autonomic nervous system, upper limb, including shoulder (Primary Dx); Right arm pain 06/12/2024 8:30 AM CDT Office Visit [facility] Surgery [address] [facility] 6th [place] [address] [place] [address] Adilene Groves PA Benign neoplasm of peripheral nerves and autonomic nervous system, upper limb, including shoulder (Primary Dx) 06/12/2024 Plan of Care Documentation [facility] Occupational Therapy [address] [place] [address] 6th [place] [address] [place] [address] from Last 3 Months Surgical History Surgery Date Site/Laterality Comments HYSTERECTOMY 03/28/2013 - 03/27/2014 BREAST SURGERY 03/28/2008 - 03/27/2009 Bilateral augmentation COLONOSCOPY Medical History Medical History Date Comments Thyroid disease Delayed emergence from general anesthesia Family History Medical History Relation Name Comments Breast cancer Mother Heart disease Other Lung cancer Other Breast cancer Sister Anesthesia problems Neg Hx Relation Name Status Comments Mother Other Sister Social History Tobacco Use Types Packs/Day Years Used Date Smoking Tobacco: Former AUDIT-C Answer Date Recorded Q1: How often do you have a drink containing alc ohol? 2-4 times a month 05/29/2024 Q2: How many drinks containi ng alcohol do you have on a typical day when you are drinking? 1 or 2 05/29/2024 Q3: How often do you have si x or more drinks on one occasion? Never 05/29/2024 Personal Safety Answer Date Recorded Have you ever been in or are you currently in a harmful physical or emotional relationship or is someone making you feel afraid or unsafe? 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 Gender Identity Not on file Sexual Orientation Not on file Obstetrics History Last Filed Vital Signs Vital Sign Reading Time Taken Comments Blood Pressure 122/76 07/17/2024 12:30 PM CDT Pulse 89 07/17/2024 12:30 PM CDT Temperature 36.3 C (97.3 F) 05/29/2024 2:25 PM SUPPLIER SPECIALIST Respiratory Rate 11 05/29/2024 3:10 PM SUPPLIER SPECIALIST Oxygen Saturation 99% 07/17/2024 12:30 PM CDT Inhaled Oxygen Concentration - - Weight 61.8 kg (136 lb 3.2 oz) 07/17/2024 12:30 PM CDT Height 172 cm (5' 7.72) 07/17/2024 12:30 PM CDT Body Mass Index 20.88 07/17/2024 12:30 PM CDT Plan of Treatment Health Maintenance Due Date Last Done Comments Colon Cancer Screening-Colonoscopy 1965 Depression Screening 1965 Hepatitis C Screening 1965 DTaP/Tdap/Td Vaccine (1 - Tdap) 1976 Hepatitis B Screening 08/01/1983 Regular Well Visit/Exam 18-64 08/01/1983 Zoster Vaccine (1 of 2) 08/01/2015 Influenza Vaccine (Season Ended) 2024 01/27/2019, 01/05/2018, 01/04/2018, Additional history exists Breast Cancer Screening-Mammogram 07/12/2025 07/12/2024, 07/13/2023, 06/02/2022, Additional history exists Pneumococcal vaccine <65 Aged Out No longer eligible based on patient's age to complete this topic Medical Devices Implanted Type Area [employer] Teacher'S Aide Device Identifier Shelf Expiration Date Model / Serial / Lot Metropia Gilberto Barrier Adhesion Seprafilm 5x6in Translucent [employer] Sterile [id number] - [id number] Implanted:Qty: 1 on 05/29/2024 by Latasha Valencia MD at [facility] Other - see comments Right: Arm [employer] [facility] [id number] 11/16/2025 [id number] / / [id number] Procedures Procedure Name Priority Date/Time Associated Diagnosis Comments SCREENING MAMMOGRAM BILATERAL W JOBY W IMPLANTS Schedule Routine, Read Routine (OP Routine) 07/12/2024 1:22 PM CDT Screening mammogram, encounter for from Last 3 Months Results * Screening Mammogram Bilateral W Joby W Implants (07/12/2024 1:22 PM CDT) Anatomical Region Laterality Modality Breast Bilateral Mammography Narrative 07/16/2024 5:57 PM CDT Mammogram Technique: Bilateral Digital Breast Tomosynthesis, Bilateral C-view 2D Screening mammogram. Views obtained: bilateral craniocaudal; bilateral craniocaudal implant displaced; bilateral mediolateral oblique; and bilateral mediolateral oblique implant displaced. Computer Aided Detection was performed. Mammogram Findings: The present examination has been compared to prior imaging studies performed at [facility] on 05/19/2021, 06/02/2022 and 07/13/2023. The breasts are heterogeneously dense, which may obscure small masses. There are bilateral sub-glandular silicone gel implants. There is no suspicious abnormality in either breast. Impression: There is no mammographic evidence of malignancy. Annual screening mammography is recommended. If supplemental screening is desired, breast MRI would be recommended in this patient with heterogeneously dense breasts. OVERALL FINAL ASSESSMENT: BI-RADS CATEGORY 1: Negative. Procedure Note Jonas Cadet MD - 07/16/2024 Mammogram Technique: Bilateral Digital Breast Tomosynthesis, Bilateral C-view 2D Screening mammogram. Views obtained: bilateral craniocaudal; bilateralcraniocaudal implant displaced; bilateral mediolateral oblique; and bilateral mediolateral oblique implant displaced. Computer Aided Detection was performed. Mammogram Findings: The present examination has been compared to prior imaging studies performed at [facility] on 05/19/2021, 06/02/2022 and 07/13/2023. The breasts are heterogeneously dense, which may obscure small masses. There are bilateral sub-glandular silicone gel implants. There is no suspicious abnormality in either breast. Impression: There is no mammographic evidence of malignancy. Annual screening mammography is recommended. If supplemental screeningis desired, breast MRI would be recommended in this patient with heterogeneously dense breasts. OVERALL FINAL ASSESSMENT: BI-RADS CATEGORY 1: Negative. us Self Screening Mammogram IMG MAMMO PROCEDURES Fi nal Result from Last 3 Months Insurance [employer] OOS BLUE ACCESS OOS BLUE ACCESS OOS Care Teams Food Specialist Relationship Specialty Start Date End Date Antoinette Cloud PA PCP - General 02/19/19
--- OUTSIDE RECORDS SUMMARY | 2024-09-04 13:11 | XMS_ITS | Referral Summary ---
Author Organization [facility] [place] [id number] [facility] Address [address] [place] [address] Care Team Providers Care Refrigeration Tech Name Role Phone Antoinette Cloud Primary Care Pr ovider Encounters Date Type Department Care Team Description 07/17/2024 12:20 PM CDT Office Visit [facility] Department of Otolaryngology Head-Neck Division [address] [facility] Floor [address] [place] [address] Hussain Wei MD Tongue lesion (Primary Dx) 07/12/2024 1:03 PM CDT - 07/12/2024 11:59 PM CDT Hospital Encounter [facility] ([facility]) [address] [place] [address] Screening mammogram, encounter for Discharge Disposition: Discharge to home or self care 07/12/2024 11:45 AM CDT Office Visit [facility] Surgery [address] [facility] 6th [place] [address] [place] [address] Latasha Valencia MD Benign neoplasm of peripheral nerves and autonomic nervous system, upper limb, including shoulder (Primary Dx) 07/03/2024 [facility] ([facility]) - [facility] ENT [address] [facility] 11th [place] [address] [place] [address] Maren Stanton MS 06/12/2024 Plan of Care Documentation [facility] Occupational Therapy [address] [facility] 6th [place] [address] [place] [address] 06/12/2024 8:40 AM CDT Therapy [facility] Occupational Therapy [address] [facility] 6th [place] [address] [place] [address] Karen Powell OT Benign neoplasm of peripheral nerves and autonomic nervous system, upper limb, including shoulder (Primary Dx); Right arm pain 06/12/2024 8:30 AM CDT Office Visit [facility] Surgery [facility] 6th [place] [address] [place] [address] Adilene Groves PA Benign neoplasm of peripheral nerves and autonomic nervous system, upper limb, including shoulder (Primary Dx) from Last 3 Months Allergies Active Allergy Reactions Criticality Noted Date Comments Adhesive Tape-Silicones Rash Medium 05/10/2024 Latex Rash Medium 04/26/2024 Meropenem Itching Low 05/10/2024 Sulfamethoxazole-Trimethoprim Rash,Unknown Medium 06/27 Medications levothyroxine (SYNTHROID) 50 mcg tabletIndications: hypothyroidism Take 1 tablet (50 mcg total) by mouth industrial gas service helper before breakfast Active zolpidem (AMBIEN) 10 mg tabletIndications: Sleep-Onset Insomnia Take 1 tablet (10 mg total) by mouth nightly Active valACYclovir (VALTREX) 500 mg tabletIndications: Skin/Soft Tissue Infection,HSV Take 2 tablets (1,000 mg total) by mouth every 12 (twelve) hours as needed Active cholecalciferol 400 unit capsuleIndications :health Take 1 tablet/capsul e (400 Units total) by mouth industrial gas service helper before breakfast Active multivitamin tabletIndications: Vitamin Deficiency Prevention Take 1 tablet by mouth industrial gas service helper before breakfast Active ascorbic acid (ascorbic acid with sathish hips) 500 mg tablet,chewableInd ications:health Take 1 tablet/chew tab (500 mg total) by mouth industrial gas service helper before breakfast Active zinc gluconate 100 mg tabletIndications: health Take 1 capsule by mouth industrial gas service helper before breakfast Active biotin 1 mg capsuleIndications :health Take 1 capsule by mouth industrial gas service helper before breakfast Active testosterone 50 mg/5 gram (1 %)Indications:HRT Place 1 each on the skin industrial gas service helper before breakfast Active acetaminophen (TYLENOL) 500 mg [...] including shoulder 05/09/2024 Other chest pain 07/23/2021 Social History Tobacco Use Types Packs/Day Years [...] on file 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 Gender Identity Not on file Sexual Orientation Not on file Last Filed Vital Signs Vital Sign Reading Time Taken Comments Blood Pressure 122/76 07/17/2024 12:30 PM CDT Pulse 89 07/17/2024 12:30 PM CDT Temperature 36.3 C (97.3 F) 05/29/2024 2:25 PM PATTERN DESIGNER Respiratory Rate 11 05/29/2024 3:10 PM PATTERN DESIGNER Oxygen Saturation 99% 07/17/2024 12:30 PM CDT Inhaled Oxygen Concentration - - Weight 61.8 kg (136 lb 3.2 oz) 07/17/2024 12:30 PM CDT Height 172 cm (5' 7.72) 07/17/2024 12:30 PM CDT Body Mass Index 20.88 07/17/2024 12:30 PM CDT Plan of Treatment Not on file Medical Devices Implanted Type Area Roller Mill 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 The breasts [...] compared to prior imaging studies performed at [facility] on 05/19/2021, 06/02/2022 and 07/13/2023. The [...] nal Result from Last 3 Months Insurance [facility] OOS BLUE ACCESS OOS BLUE ACCESS OOS BLUE ACCESS OOS Member Subscriber Plan / Payer (Ef fective 2022-Present) Name:Ozzy Barone Relation to Subscriber:Self Name:Ozzy Barone Payer ID:[id number] (NAIC) Type: ALLIANCE Address: [facility] [address] [place] [id number] Care Teams Refrigeration Tech Relationship Specialty Start Date End Date Antoinette Cloud PA PCP - General 02/19/19
== END 2024-09-04 12:16 | disposition home or self-care (01) ==
LOC: ANHLAB 12:17
PROVIDERS: PCP Physician Assistant; Visit Provider Physician Assistant
DX: R30.0 Dysuria (principal)
CPT/HCPCS: 81001; 87086